=== PATIENT | female | born 1935 | race Caucasian/White ===

== ENCOUNTER 2019-05-12 21:24 | Inpatient (IN) | payer MEDICARE, MEDICAID ==
[~2019-05-12] VITALS: Ht 162.6 cm; Wt 78.9 kg
--- NOTE | 2019-05-12 21:33 | NUR ---
BIB [facility] FOR LOWER EXTREMITY WEAKNESS AND SWELLING FOR 2 DAYS. PATIENT C/O PAIN IN LOWER EXTREMETIES TO THE TOUCH. PER FAMILY PATIENT USUALLY WALKS BUT HAS DIFFICULTY WALKING FOR THE PAST FEW DAYS.
--- NOTE | 2019-05-12 21:56 | NUR ---
DR. RICCI AT BEDSIDE FOR MSE.
[2019-05-12 22:20] LABS: BASOPHILS % (AUTO) 0.3 % (0.0-2.0); EOSINOPHILS % (AUTO) 0.1 % (0.0-7.0); HEMATOCRIT 36.7 % (31.2-41.9); HEMOGLOBIN 12.2 g/dL (10.9-14.3); LYMPHOCYTES # (AUTO) 0.9 K/uL (20.0-40.0); LYMPHOCYTES % (AUTO) 8.6 % (20.5-51.5); MEAN CORPUSCULAR HEMOGLOBIN 30.3 uug (24.7-32.8); MEAN CORPUSCULAR HGB CONC 33 g/dL (32.3-35.6); MEAN CORPUSCULAR VOLUME 91.2 fL (75.5-95.3); MONOCYTES # (AUTO) 0.9 K/uL (2.0-10.0); MONOCYTES % (AUTO) 8.7 % (0.0-11.0); NEUTROPHILS # (AUTO) 8.2 K/uL (1.8-8.9); NEUTROPHILS % (AUTO) 82.3 % (38.5-71.5); PLATELET COUNT (AUTO) 334 K/uL (179-408); RED BLOOD CELL COUNT(AUTO) 4.03 MIL/uL (3.63-4.92); WHITE BLOOD COUNT (AUTO) 9.9 K/uL (3.8-11.8)
[2019-05-12 22:28] LABS: CARBON DIOXIDE 27 mmol/L (21-32); CHLORIDE 106 mmol/L (98-107); CREATININE 0.8 mg/dL (0.6-1.3); GLUCOSE 168 mg/dL (74-106); POTASSIUM 4.1 mmol/L (3.5-5.1); UREA NITROGEN, BLOOD 19 mg/dL (7-18)
[2019-05-12 22:34] LABS: ALANINE AMINOTRANSFERASE 23 U/L (14-59); ALKALINE PHOSPHATASE 88 U/L (50-136); ASPARTATE AMINOTRANSFERASE 54 U/L (15-37); BILIRUBIN,DIRECT 0.2 mg/dL (0.0-0.2); TOTAL PROTEIN, SERUM 7.4 g/dL (6.4-8.2)
[2019-05-12 23:40] LABS: *BILIRUBIN,URIN NEGATIVE (NEGATIVE); *BLOOD, URINE 1+ (NEGATIVE); *CLARITY,URINE CLEAR (CLEAR); *COLOR,URINE YELLOW (YELLOW); *KETONES,URINE 1+ (NEGATIVE); *UROBILINOGEN,URINE 0.2 E.U./dl (NORMAL); LEUKOCYTE ESTERASE ,URINE 1+ (NEGATIVE); NITRITE, URINE NEGATIVE (NEGATIVE); PH,URINE 6.5 (5.0-8.0); UGLUCOSE NEGATIVE (NEGATIVE)
[2019-05-12 23:48] LABS: BACTERIA,URINE NONE SEEN /HPF (NONE SEEN); SQUAMOUS EPITHELIAL CELL,UR FEW /HPF (NONE SEEN)
--- NOTE | 2019-05-13 00:33 | NUR ---
DR. GURROLA SPEAKING WITH DR RICCI AT THIS TIME.
--- NOTE | 2019-05-13 00:44 | NUR ---
Pt. admitted to [facility] , under care of Grace GURROLA N.P. Belongs List completed.
[2019-05-13] MEDS ORDERED: MAGNESIUM HYDROXIDE 30 ML LIQUID UDC PO PRN (01:00)
[2019-05-13] MEDS ORDERED: ENOXAPARIN SODIUM 30 MG/0.3 ML DISP.SYRIN SQ SCH ×2 (01:00→21:00)
[2019-05-13] MEDS ORDERED: Z GUARD REMEDY PASTE 57 GM TUBE TOP PRN (01:00)
[2019-05-13] MEDS ORDERED: ONDANSETRON 4 MG/2 ML VIAL IV PRN (01:00)
[2019-05-13] MEDS ORDERED: TEMAZEPAM 15 MG CAPSULE PO PRN (01:00)
[2019-05-13] MEDS ORDERED: ACETAMINOPHEN 325 MG TABLET PO PRN (01:00)
[2019-05-13] MEDS ORDERED: ASPIRIN 81 MG TAB.CHEW PO SCH (01:00)
[2019-05-13] MEDS: CEFTRIAXONE 1 G in IV DEXTROSE 5% 50 ML IV SCH (01:00)
[2019-05-13] MEDS ORDERED: MORPHINE SULFATE 2 MG/1 ML DISP.SYRIN IV PRN (01:00)
--- NOTE | 2019-05-13 01:00 | NUR ---
Admitting notes: Patient received into care, alert and oriented x3, with daughter at side. Patient came to hospital c/o generalized weakness x1 day with inability to ambulate. Patient has limited medical history of past CVA and bilateral cataract surgery. During ECG in ED, pt was found to have active A-fib. Per daughter, patient refuses to go to any doctor for check-up or ongoing care. All pertinent assessments were completed. Patient has BLE swelling of 1-2+ pitting edema. Patient has a 4-5 inch scrape on left hip/thigh that daughter states occurred when patient could not move left leg out of shower. Photograph taken and filed. Patient's vs are wnl and patient is stable. Will continue to monitor. Addendum: 05/13/19 at 0354 by ALE WONG RN Daughter is going to stay with patient. Extended stay form completed and filed.
[2019-05-13 01:29] VITALS: BP 167/80
--- NOTE | 2019-05-13 01:30 | NUR ---
IV antibiotic rocephin 50mL provided as ordered and tolerated well with no adverse side effects noted or observed.
[2019-05-13] MEDS ORDERED: CEFTRIAXONE 1 G VIAL ONE (02:46)
--- NOTE | 2019-05-13 05:00 | NUR ---
Patient has rested comfortably in bed with daughter at bedside since admission to unit. Patient has had no complaints of pain or discomfort since admission. VS are wnl and patient is stable. All safety and fall precaution measures are in place. Call light and personal items are within reach at all times. Will provide report to oncoming shift.
[2019-05-13 05:15] VITALS: BP 154/75
[2019-05-13 06:28] LABS: BASOPHILS % (AUTO) 0.4 % (0.0-2.0); EOSINOPHILS % (AUTO) 0.1 % (0.0-7.0); HEMATOCRIT 33.1 % (31.2-41.9); HEMOGLOBIN 11.2 g/dL (10.9-14.3); LYMPHOCYTES # (AUTO) 1.3 K/uL (20.0-40.0); LYMPHOCYTES % (AUTO) 15.3 % (20.5-51.5); MEAN CORPUSCULAR HEMOGLOBIN 30.7 uug (24.7-32.8); MEAN CORPUSCULAR HGB CONC 34 g/dL (32.3-35.6); MEAN CORPUSCULAR VOLUME 90.8 fL (75.5-95.3); MONOCYTES # (AUTO) 0.8 K/uL (2.0-10.0); MONOCYTES % (AUTO) 9.9 % (0.0-11.0); NEUTROPHILS # (AUTO) 6.3 K/uL (1.8-8.9); NEUTROPHILS % (AUTO) 74.3 % (38.5-71.5); PLATELET COUNT (AUTO) 292 K/uL (179-408); RED BLOOD CELL COUNT(AUTO) 3.64 MIL/uL (3.63-4.92); WHITE BLOOD COUNT (AUTO) 8.5 K/uL (3.8-11.8)
[2019-05-13 06:37] LABS: ALANINE AMINOTRANSFERASE 18 U/L (14-59); ALKALINE PHOSPHATASE 75 U/L (50-136); ASPARTATE AMINOTRANSFERASE 48 U/L (15-37); BILIRUBIN,TOTAL 0.8 mg/dL (0.2-1.0); CARBON DIOXIDE 27 mmol/L (21-32); CHLORIDE 108 mmol/L (98-107); CHOLESTEROL 221 mg/dL (<200); CREATININE 0.7 mg/dL (0.6-1.3); GLUCOSE 144 mg/dL (74-106); HDL CHOLESTEROL 95 mg/dL (40-60); MAGNESIUM 1.7 mg/dL (1.8-2.4); POTASSIUM 3.4 mmol/L (3.5-5.1); TOTAL PROTEIN, SERUM 6.3 g/dL (6.4-8.2); TRIGLYCERIDES 52 MG/DL (30-150); UREA NITROGEN, BLOOD 19 mg/dL (7-18)
[2019-05-13] MEDS: PANTOPRAZOLE SODIUM 40 MG TABLET.DR PO SCH (06:44)
--- NOTE | 2019-05-13 07:00 | NUR ---
RECEIVED PATIENT IN BED, AOX3, DAUGHTER AT BEDSIDE. PATIENT DENIES SOB OR PAIN AT THIS TIME. LT. AC IV INTACT AND FLUSHING WELL. SAFETY PRECAUTIONS IN PLACE. CALL LIGHT IN REACH. BED IN LOW POSITION AND LOCKED. ALL NEEDS MET AT THIS TIME. WILL CONTINUE TO MONITOR.
[2019-05-13 11:00] VITALS: BP_SYST 108; BP_SYST 158; BP_DIAS 93
[2019-05-13] MEDS ORDERED: POTASSIUM CHLORIDE 20 MEQ TAB.PRT.SR PO ONE (14:45)
[2019-05-13 15:06] VITALS: BP 167/78
[2019-05-13] MEDS: RIVAROXABAN 10 MG TABLET PO SCH (18:59)
[2019-05-13] MEDS: CARVEDILOL 6.25 MG TABLET PO SCH (19:00)
--- NOTE | 2019-05-13 19:00 | NUR ---
PATIENT RECEIVED ALERT AND AWAKE IN BED WITH DAUGHTER AT BEDSIDE. PATIENT IS IN NO APPARENT DISTRESS. PATIENT IS COMFORTABLE. SIDE RAILS UP X 2 BED IN LOWEST POSITION.
--- NOTE | 2019-05-13 19:17 | NUR ---
PATIENT IN BED AOX3. COMPLIANT WITH ALL CARE THROUGHOUT THE SHIFT. ALL NEEDS MEAT. SAFETY PRECAUTIONS IN PLACE.
[2019-05-13 20:44] VITALS: BP 151/77
[2019-05-13] MEDS ORDERED: ENOXAPARIN SODIUM 40 MG/0.4 ML DISP.SYRIN SQ SCH (21:00)
[2019-05-13] MEDS: ATORVASTATIN 20 MG TABLET PO SCH (21:01)
[2019-05-14 00:25] VITALS: BP 148/72
[2019-05-14] MEDS: CEFTRIAXONE 1 G in IV DEXTROSE 5% 50 ML IV SCH (00:43)
[2019-05-14 04:00] VITALS: BP 132/63
--- NOTE | 2019-05-14 06:06 | NUR ---
PATIENT IS IN BED AWAKE, PATIENT WAS CHANGED AND VOIDED ONCE. PATIENT IS COMFORTABLE IN NO APPARENT DISTRESS AT THIS TIME. CALL LIGHT IS WITHIN REACH. BED IS LOCKED WITH SIDE RAILS UP X 2.
[2019-05-14] MEDS: PANTOPRAZOLE SODIUM 40 MG TABLET.DR PO SCH (06:39)
[2019-05-14 06:49] LABS: BASOPHILS % (AUTO) 0.8 % (0.0-2.0); EOSINOPHILS # (AUTO) 0.1 K/uL (0.0-0.7); EOSINOPHILS % (AUTO) 1.7 % (0.0-7.0); HEMATOCRIT 32.9 % (31.2-41.9); LYMPHOCYTES # (AUTO) 1.7 K/uL (20.0-40.0); LYMPHOCYTES % (AUTO) 27.5 % (20.5-51.5); MEAN CORPUSCULAR HEMOGLOBIN 30.6 uug (24.7-32.8); MEAN CORPUSCULAR HGB CONC 34 g/dL (32.3-35.6); MEAN CORPUSCULAR VOLUME 91.4 fL (75.5-95.3); MONOCYTES # (AUTO) 0.7 K/uL (2.0-10.0); MONOCYTES % (AUTO) 11.6 % (0.0-11.0); NEUTROPHILS # (AUTO) 3.6 K/uL (1.8-8.9); NEUTROPHILS % (AUTO) 58.4 % (38.5-71.5); PLATELET COUNT (AUTO) 275 K/uL (179-408)
[2019-05-14 06:53] LABS: CARBON DIOXIDE 29 mmol/L (21-32); CHLORIDE 108 mmol/L (98-107); CREATININE 0.7 mg/dL (0.6-1.3); GLUCOSE 128 mg/dL (74-106); UREA NITROGEN, BLOOD 21 mg/dL (7-18)
[2019-05-14 07:11] LABS: WHITE BLOOD COUNT (AUTO) 6.2 K/uL (3.8-11.8)
--- NOTE | 2019-05-14 08:00 | NUR ---
AWAKE ALERT, PLEASANT AND COOPERATIVE, ABLE TO VERBALIZE NEEDS WELL WITH DAUGHTER AT BEDSIDE SUPPORTIVE WITH CARE. SR ON MONITOR
[2019-05-14] MEDS: CARVEDILOL 6.25 MG TABLET PO SCH ×2 (08:59→17:24)
[2019-05-14] MEDS ORDERED: ASPIRIN 81 MG TAB.CHEW PO SCH (09:00)
[2019-05-14] MEDS: HYDROCODONE/APAP 5-325MG TABLET PO PRN (09:01)
--- NOTE | 2019-05-14 09:06 | NUR ---
SEEN BY SPEECH AND PHYSICAL THERAPIST, SEE NOTES
--- NOTE | 2019-05-14 09:07 | NUR ---
MEDICATED WITH NORCO FOR LEFT RIB CAGE AND LEFT SIDE OF ABDOMEN PAIN. OBSERVED. AFIB ON MONITOR
[2019-05-14 11:07] VITALS: BP 134/77
--- NOTE | 2019-05-14 12:48 | NUR ---
SEEN BY DR MENDIETA AND CLINCHING MACHINE OPERATOR DISCUSSED PLAN OF CARE AND DISCHARGE PROCESS SEE NOTES. REMAINS AFIB ON MONITOR
--- NOTE | 2019-05-14 14:20 | NUR ---
WOUND CARE CONSULT: PT PRESENTS WITH INCONTINENCE ASSOCIATED SKIN DAMAGE TO LEFT POSTERIOR BUTTOCK/THIGH WITH SHEARING AND REDNESS TO LEFT GROIN FOLD, PRESENT ON ADMISSION. RECOMMENDATIONS MADE FOR SKIN CARE AND PROTECTION. DISCUSSED WITH NURSING STAFF. PT ABLE TO ASSIST WITH TURNING AND REPOSITIONING IN BED. PT IS INCONTINENT. WILL SEE PRN. RAMOS IN AGREEMENT WITH PLAN OF CARE. Addendum: 05/14/19 at 1433 by JABARI SEGAL RN Amended: Links added.
[2019-05-14 15:07] VITALS: BP 130/76
[2019-05-14] MEDS: RIVAROXABAN 10 MG TABLET PO SCH (17:22)
[2019-05-14 20:00] VITALS: BP 141/74
--- NOTE | 2019-05-14 20:00 | NUR ---
RECEIVED PATIENT AWAKE IN BED WITH DAUGHTER AT BEDSIDE. PATIENT IS A/O X4. FARSI SPEAKING BUT ABLE TO MAKE SIMPLE NEEDS KNOWN. VS WNL. ON RA SATING 97%. DENIES ANY SOB OR PAIN AT THIS TIME. H/L INTACT AND PATENT. BED ALARM ON. CALL LIGHT IN REACH. ALL NEEDS ATTENDED. WILL CONTINUE TO MONITOR.
[2019-05-14] MEDS: ATORVASTATIN 20 MG TABLET PO SCH (20:55)
[2019-05-15] MEDS: HYDROCODONE/APAP 5-325MG TABLET PO PRN (00:02)
[2019-05-15] MEDS: CEFTRIAXONE 1 G in IV DEXTROSE 5% 50 ML IV SCH (00:10)
--- NOTE | 2019-05-15 04:20 | NUR ---
PATIENT AWAKE, BP ELEVATED 165/78. PATIENT GIVEN CLONIDINE 0.1MG PO PRN FOR SBP >165. WILL CONTINUE TO MONITOR AND ASSESS.
[2019-05-15] MEDS: CLONIDINE HCL 0.1 MG TABLET PO PRN ×2 (04:24→13:20)
[2019-05-15 04:27] VITALS: BP 165/78
[2019-05-15 05:59] VITALS: BP 105/60
--- NOTE | 2019-05-15 05:59 | NUR ---
RECHECKED PATIENTS BLOOD PRESSURE 105/60.
[2019-05-15] MEDS: PANTOPRAZOLE SODIUM 40 MG TABLET.DR PO SCH (06:27)
[2019-05-15] MEDS: CARVEDILOL 6.25 MG TABLET PO SCH (08:35)
[2019-05-15 11:36] VITALS: BP 124/63
--- NOTE | 2019-05-15 11:50 | NUR ---
Pt. resting in bed alert oriented x3-4 Farsi speaking with daughter at bedside. No IV access as pt. refused and is a hardstick. Charge nurse and doctor aware. Pt. denies any SOB or difficulty breathing. Pt. denies any pain. Comfort measures provided. Safety measures in place. Call light within reach. Will continue to monitor.
[2019-05-15 13:20] VITALS: BP 186/97
--- NOTE | 2019-05-15 13:40 | NUR ---
Pt. discharged home via ambulance. Pt. in stable condition with daughter at bedside. Wrist band removed. Catapress given for elevated BP. BP now at 149/78 HR 83. Charge nurse aware.
== END 2019-05-15 13:45 | disposition home or self-care (01) | DRG 690 ==
LOC: ER 21:24 → TELE3 05-13 00:47 → MEDSURG3 05-14 14:22
PROVIDERS: ADMIT Nurse Practitioner Acute Care
DX: N39.0 Urinary tract infection, site not specified (principal); J98.11 Atelectasis; I48.2 Chronic atrial fibrillation; R53.1 Weakness; Z91.14 Patient's other noncompliance with medication regimen; E87.6 Hypokalemia; E83.42 Hypomagnesemia; E78.5 Hyperlipidemia, unspecified; Z86.73 Personal history of transient ischemic attack (TIA), and cerebral infarction without residual deficits; E86.0 Dehydration; Z98.42 Cataract extraction status, left eye; Z98.41 Cataract extraction status, right eye; I11.9 Hypertensive heart disease without heart failure; E11.9 Type 2 diabetes mellitus without complications; R74.0 Nonspecific elevation of levels of transaminase and lactic acid dehydrogenase [LDH]
CPT/HCPCS: 36415; 70030-TC; 70450; 71045; 71250; 83605; 83735; 84100; 84443; 85025; 85730; 87040; 87086; 93005; 93307; A4663; G0378; J0696; J1650; J7040; J7060

== ENCOUNTER 2021-08-10 18:39 | Inpatient (IN) | payer MEDICARE, OTHER ==
[~2021-08-10] VITALS: Ht 152.4 cm; Wt 93.0 kg
--- NOTE | 2021-08-10 18:45 | NUR ---
Per EMS pt is taking Xarelto, no other information about current home medications available at this time.
[2021-08-10] MEDS ORDERED: XARELTO (18:49)
[2021-08-10] MEDS ORDERED: ALBUTEROL SULFATE 2.5 MG/3 ML NEBU NEB ONE (19:00)
[2021-08-10] MEDS ORDERED: predniSONE 10 MG TABLET PO ONE (19:00)
[2021-08-10] MEDS ORDERED: IPRATROPIUM BROMIDE 0.5 MG/2.5 ML NEBU NEB ONE (19:00)
[2021-08-10] MEDS ORDERED: IPRATROPIUM BROMIDE 0.5 MG/2.5 ML NEBU ONE (19:05)
[2021-08-10] MEDS ORDERED: ALBUTEROL SULFATE 2.5 MG/3 ML NEBU ONE (19:06)
--- NOTE | 2021-08-10 19:08 | NUR ---
PT IS IN ROOM #2A. DR ETIENNE EVALUATED THE PT.
[2021-08-10 19:23] LABS: HEMATOCRIT 31.2 % (31.2-41.9); MEAN CORPUSCULAR HEMOGLOBIN 30.1 uug (24.7-32.8); MEAN CORPUSCULAR VOLUME 92.8 fL (75.5-95.3); PLATELET COUNT (AUTO) 309 K/uL (179-408)
[2021-08-10 19:35] LABS: ABG BASE EXCESS 4.4 mmol/L; ABG PCO2 57.1 mmHg (35.0-45.0); ABG PH 7.353 (7.350-7.450); ABG PO2 99.2 mmHg (75.0-100.0); ABG SITE RIGHT RADIAL; ABG TOTAL HEMOGLOBIN 10.8 G/dL (12.0-16.0); COHb 0.7 % (0.5-1.5); MetHb 0.2 % (0.0-1.5); O2Hb 96.3 % (94.0-97.0); VENT MODE Nasal Cannula
[2021-08-10 19:35] LABS: BILIRUBIN,DIRECT 0.3 mg/dL (0.0-0.2); BILIRUBIN,TOTAL 1.1 mg/dL (0.2-1.0); CREATININE 0.8 mg/dL (0.6-1.3); TOTAL PROTEIN, SERUM 6.5 g/dL (6.4-8.2)
[2021-08-10] MEDS ORDERED: predniSONE 50 MG TABLET ONE (19:37)
[2021-08-10] MEDS ORDERED: predniSONE 10 MG TABLET ONE (19:37)
[2021-08-10 19:39] LABS: POTASSIUM 3.9 mmol/L (3.5-5.1)
--- NOTE | 2021-08-10 19:45 | NUR ---
Dr. Knott speaking with Dr. Vasquez.
[2021-08-10] MEDS ORDERED: CARV6.25 PO (19:56)
[2021-08-10] MEDS ORDERED: FURO-152 PO (19:56)
[2021-08-10] MEDS ORDERED: RIVA20TA PO (19:56)
[2021-08-10] MEDS ORDERED: FUROSEMIDE 40 MG/4 ML VIAL IV ONE (20:00)
[2021-08-10] MEDS ORDERED: POTASSIUM CHLORIDE 20 MEQ TAB.PRT.SR PO ONE (20:00)
--- NOTE | 2021-08-10 20:00 | NUR ---
CALLED [facility] SPOKE WITH LINDA WHO REQUESTED FACESHEET AND CLINICALS TO BE FAXED TO
[2021-08-10] MEDS ORDERED: FUROSEMIDE 40 MG/4 ML VIAL ONE (20:11)
[2021-08-10] MEDS ORDERED: POTASSIUM CHLORIDE 20 MEQ TAB.PRT.SR ONE (20:12)
--- NOTE | 2021-08-10 21:03 | NUR ---
LINDA FROM [facility] CALLED BACK AND STATES THEY ARE UNABLE TO ACCEPT PATIENT AT THIS TIME DUE TO NO BEDS AVAILABLE IN THE HOSPITAL. DR JAIMIE VARGAS.
--- NOTE | 2021-08-10 21:06 | NUR ---
PAVAN NEUMANN INTO INTO EVAL PATIENT.
[2021-08-10] MEDS ORDERED: NITROGLYCERIN OINT 1 GM PACKET TP ONE ×2 (21:14→21:15)
[2021-08-10] MEDS ORDERED: ONDANSETRON 4 MG/2 ML VIAL IV PRN (21:30)
[2021-08-10] MEDS ORDERED: MAGNESIUM HYDROXIDE 30 ML LIQUID UDC PO PRN (21:30)
[2021-08-11] VITALS (7 sets, daily range): BP systolic 116–141; BP diastolic 63–78
--- NOTE | 2021-08-11 00:15 | NUR ---
At 2345H, admitted 85 y/o female on Tele with dx of acute CHF exacerbation and acute on chronic resp failure. Pt is Farsi Speaking, anxious, and with hx of dementia. IV on RAC G#20 patent and intact. Admission process done, belongings list filled up, body assessment done with picture taken placed in chart. A-fib on Tele. All needs attended. Call light placed within reach. Will continue to monitor.
[2021-08-11] MEDS ORDERED: LORAZEPAM 2 MG/1 ML VIAL IV PRN (01:15)
--- NOTE | 2021-08-11 02:10 | NUR ---
Pt noted to be anxious and trying to get up several times, also pulled out her IV. MD Elizabeth informed and ordered Ativan 1mg Q8H PRN. IV reinserted on R hand G#20, Ativan given and tolerated well. Pt currently asleep on bed. Will continue to monitor.
[2021-08-11] MEDS: CARVEDILOL 6.25 MG TABLET PO SCH ×3 (09:00→23:45)
[2021-08-11 09:01] LABS: CREATININE 0.8 mg/dL (0.6-1.3); MAGNESIUM 1.8 mg/dL (1.8-2.4); PHOSPHOROUS 4.7 mg/dL (2.5-4.9); POTASSIUM 4.7 mmol/L (3.5-5.1)
[2021-08-11 10:05] LABS: MEAN CORPUSCULAR HEMOGLOBIN 29.4 uug (24.7-32.8); MEAN CORPUSCULAR VOLUME 93.6 fL (75.5-95.3); PLATELET COUNT (AUTO) 274 K/uL (179-408)
[2021-08-11] MEDS ORDERED: FUROSEMIDE 20 MG/2 ML VIAL IV SCH (12:45)
[2021-08-11 13:02] LABS: ABG BASE EXCESS 6.1 mmol/L; ABG HCO3 35.7 mmol/L; ABG PCO2 85.6 mmHg (35.0-45.0); ABG PH 7.238 (7.350-7.450); ABG PO2 108.1 mmHg (75.0-100.0); ABG SITE LEFT RADIAL; ABG TOTAL HEMOGLOBIN 10.8 G/dL (12.0-16.0); COHb 0.1 % (0.5-1.5); MetHb 0.1 % (0.0-1.5); O2Hb 97.7 % (94.0-97.0)
[2021-08-11] MEDS: RIVAROXABAN 10 MG TABLET PO SCH (17:54)
--- NOTE | 2021-08-11 18:45 | NUR ---
Patient asleep in bed. Patient lethargic for most of shift. No signs of acute distress. IV access patent and intact. Patient on 8L O2 via simple mask, saturating 97-98%. Patient turned and repositioned q2. Bed alarm on for safety. Will endorse to incoming shift for continuity of care.
[2021-08-12 04:03] VITALS: BP 112/50
[2021-08-12 05:50] LABS: ABG BASE EXCESS 4.2 mmol/L; ABG HCO3 33.6 mmol/L; ABG PCO2 80.5 mmHg (35.0-45.0); ABG PH 7.238 (7.350-7.450); ABG PO2 78.1 mmHg (75.0-100.0); ABG SITE RIGHT RADIAL; ABG TOTAL HEMOGLOBIN 10.9 G/dL (12.0-16.0); COHb 0.2 % (0.5-1.5); MetHb 0.3 % (0.0-1.5); O2Hb 94.3 % (94.0-97.0)
--- NOTE | 2021-08-12 08:00 | NUR ---
Pt confused. PT o2 sat tapered down to 5 lit mask with sat of 94% with FORMING YARDAGE CONTROL OPERATOR. Mittens released and checked skin intact.
[2021-08-12 08:07] LABS: HEMATOCRIT 29.8 % (31.2-41.9); MEAN CORPUSCULAR HEMOGLOBIN 30.4 uug (24.7-32.8); MEAN CORPUSCULAR VOLUME 93.8 fL (75.5-95.3); PLATELET COUNT (AUTO) 301 K/uL (179-408)
[2021-08-12 08:30] LABS: CREATININE 1.1 mg/dL (0.6-1.3); POTASSIUM 4.9 mmol/L (3.5-5.1)
[2021-08-12] MEDS: CARVEDILOL 6.25 MG TABLET PO SCH ×2 (09:02→21:28)
[2021-08-12] MEDS: FUROSEMIDE 20 MG/2 ML VIAL IV SCH ×2 (12:06→21:28)
[2021-08-12 12:12] VITALS: BP 122/67
[2021-08-12] MEDS ORDERED: levoFLOXacin 500 MG/D5W 500 MG in PREMIXED 1 EACH IV SCH (14:15)
[2021-08-12 15:16] VITALS: BP 124/68
[2021-08-12] MEDS: levoFLOXacin 750MG/D5W 750 MG in PREMIXED 1 EACH IV SCH (16:17)
[2021-08-12 20:48] VITALS: BP 126/68
[2021-08-12] MEDS: DOCUSATE SODIUM 100 MG CAPSULE PO SCH (21:28)
[2021-08-12] MEDS ORDERED: RIVAROXABAN 10 MG TABLET ONE (22:53)
[2021-08-12] MEDS: RIVAROXABAN 10 MG TABLET PO SCH (23:14)
[2021-08-13] VITALS (11 sets, daily range): BP systolic 113–167; BP diastolic 56–92
--- NOTE | 2021-08-13 01:43 | NUR ---
Pt pulled out her midline pt was able to get out of her mittens. Pulled out his o2 pt desaturating to 82% on r/a at rest put pt back on simple mask @ 5 liters o2 sat came back up to 95%.
--- NOTE | 2021-08-13 01:48 | NUR ---
Attempted to restart IV unsuccessful will endorse to am shift.
[2021-08-13 06:09] LABS: ABG BASE EXCESS 8.7 mmol/L; ABG PCO2 66.4 mmHg (35.0-45.0); ABG PH 7.352 (7.350-7.450); ABG PO2 89.9 mmHg (75.0-100.0); ABG SITE RIGHT RADIAL; ABG TOTAL HEMOGLOBIN 9.9 G/dL (12.0-16.0); COHb 0.3 % (0.5-1.5); MetHb 0.3 % (0.0-1.5); O2Hb 96.2 % (94.0-97.0)
[2021-08-13 06:46] LABS: HEMATOCRIT 27.9 % (31.2-41.9); MEAN CORPUSCULAR VOLUME 93.5 fL (75.5-95.3); PLATELET COUNT (AUTO) 263 K/uL (179-408)
--- NOTE | 2021-08-13 06:57 | NUR ---
Pt is in no acute distress. PT slept through the night.
[2021-08-13 07:02] LABS: CREATININE 0.9 mg/dL (0.6-1.3); POTASSIUM 4.5 mmol/L (3.5-5.1)
--- NOTE | 2021-08-13 08:30 | NUR ---
received patient in bed with mask her sats are 94-95 percent changed her to nasal canula at 4l/m and her sat is at 94 percent she is confused gets aggressive at times removing her clothes has no iv access because per report she pulled her midline out will not allow the leads of her tele pulling on every thing despite being on wrist and mittens found mittens removed and thrown on the floor.latoya nielsen aware of patients actions with no new orders did not want to order any behavior meds for her at this time.
[2021-08-13] MEDS ORDERED: FUROSEMIDE 20 MG TABLET PO SCH (09:45)
--- NOTE | 2021-08-13 10:05 | NUR ---
Pt combative and in restraints. refused breast ultrasound
[2021-08-13] MEDS: DOCUSATE SODIUM 100 MG CAPSULE PO SCH ×2 (10:14→21:00)
[2021-08-13] MEDS: CARVEDILOL 6.25 MG TABLET PO SCH ×2 (10:14→21:00)
--- NOTE | 2021-08-13 10:45 | NUR ---
abg done per latoya and she reviewed results with no new orders at this time
[2021-08-13 11:24] LABS: ABG BASE EXCESS 8.4 mmol/L; ABG HCO3 35.6 mmol/L; ABG PH 7.363 (7.350-7.450); ABG PO2 105.6 mmHg (75.0-100.0); ABG SITE LEFT RADIAL; ABG TOTAL HEMOGLOBIN 10.9 G/dL (12.0-16.0); COHb 0.4 % (0.5-1.5); MetHb 0.1 % (0.0-1.5); O2Hb 97.6 % (94.0-97.0)
--- NOTE | 2021-08-13 12:53 | NUR ---
PAVAN NEUMANN HERE SEEN PATIENT AWARE THAT SHE IS NOW AGGRESSIVE AND DID PULL OUT HER MIDLINE LAST NITE AND SHE STATED TO REINSERT ANOTHER MID LINE MID LINE RN HERE AND AWARE.
--- NOTE | 2021-08-13 14:50 | NUR ---
respiratory therapist here patient has pulled out her o2 and resp is in the 40s and he called rapid response and placed patient on bipap latoya nielsen here and aware and wants patient to be ras status nursing customer services supervisor aware and stated that patient should be transfered to icu bed 2 as a ras
--- NOTE | 2021-08-13 15:05 | NUR ---
patient transfered to icu bed 2 and report given to the receiving nurse for continuining care patient has no personal belongings at the time of transfer o2 sat on the bipap is 97 percent .
--- NOTE | 2021-08-13 15:30 | NUR ---
pt received with FIO2 80%, orders to upgrade to ICU status.
--- NOTE | 2021-08-13 15:30 | NUR ---
received pt from telemetry unit, pt on bipap settings at 15/4, 20bpm, Fio2 80%. pt vitals 113HR, 100% O2 on bipap, 13BPM, 136/96BP. pt has bruising on the left lower leg going onto the heel. edematous lower extremities. Started 18g Iv on the right AC. pt appears to be obtunded, responsive to touch and light pain. Pt on bedside monitor controlled afib. pt on bilateral mittens and soft wrist restraints. will continue to monitor
--- NOTE | 2021-08-13 16:35 | NUR ---
CALLED PATIENTS DAUGHTER JOANA FOSTER NOTIFIED HER THAT HER MOTHER HAD A CHANGE IN CONDITION WAS SEEN BY PAVAN WITH ORDER TO TRANSFER TO [facility]. SHE WAS MOVED TO ICU BED 2 A [facility]SE STATUS SHE WAS VERY UPSET THAT THIS PATIENT HAS BEEN SEEN ONLY BY THE NURSE PRACTITIONER SINCE ADMISSION.SHE WAS REASSURED THAT THE DOCTOR AND THE FRONT OFFICE JAVA DEVELOPER ARE WORKING TOGETHER IN TAKING CARE OF HER MOM.
[2021-08-13 16:54] LABS: ABG BASE EXCESS 7.3 mmol/L; ABG HCO3 36.9 mmol/L; ABG PCO2 84.7 mmHg (35.0-45.0); ABG PH 7.257 (7.350-7.450); ABG SITE LEFT BRACHIAL; ABG TOTAL HEMOGLOBIN 11.3 G/dL (12.0-16.0); COHb 0.3 % (0.5-1.5); MetHb 0.5 % (0.0-1.5); O2Hb 95.5 % (94.0-97.0); VENT MODE BIPAP
--- NOTE | 2021-08-13 17:00 | NUR ---
pt visited by Dr. Hardwick, started on bipap 17/02 rate 20, fio2 60%. ABG ordered for tomorrow AM, to be done while pt is off bipap for 2 hours prior.
[2021-08-13] MEDS ORDERED: ALPRAZOLAM 0.25 MG TABLET PO PRN (17:15)
--- NOTE | 2021-08-13 17:40 | NUR ---
Patient seen by systems technician Dr. Hardwick report given see orders. Per his recommendation Dr. Qureshi called and notified of Geodon ordered for severe psychosis and agitation, and to informed him as well that pt. is currently on uncontrolled A-fib.
[2021-08-13] MEDS ORDERED: LEVALBUTEROL HCL NEB 0.63 MG/3 ML NEBU NEB PRN (17:45)
[2021-08-13] MEDS: RIVAROXABAN 10 MG TABLET PO SCH (18:00)
--- NOTE | 2021-08-13 19:07 | NUR ---
A call back from Dr. Qureshi and orders to give digoxin 500mcg IVP X 1 dose received. and endorse to incoming shift.
--- NOTE | 2021-08-13 19:10 | NUR ---
reveived patient on a bipap . 20 at 60 fio2 % , Hr afib at 101 , fernandes and iv intact , awake , restless , uncooperative , no fever
[2021-08-13] MEDS ORDERED: DIGOXIN 500 MCG/2 ML AMP IV ONE (19:15)
[2021-08-13] MEDS: ACETAzolamide SODIUM 500 MG VIAL IV SCH (19:21)
[2021-08-13 19:24] LABS: *BLOOD, URINE 3+ (NEGATIVE); *COLOR,URINE YELLOW (YELLOW); *KETONES,URINE NEGATIVE (NEGATIVE); LEUKOCYTE ESTERASE ,URINE NEGATIVE (NEGATIVE); NITRITE, URINE NEGATIVE (NEGATIVE); PH,URINE 5.5 (5.0-8.0); UGLUCOSE TRACE (NEGATIVE)
[2021-08-13 19:27] LABS: *BILIRUBIN,URIN 1+ (NEGATIVE)
[2021-08-13 19:32] LABS: *CLARITY,URINE SLIGHTLY CLOUDY (CLEAR); BACTERIA,URINE FEW /HPF (NONE SEEN); RBC,URINE 20-50 /HPF (0-3); SQUAMOUS EPITHELIAL CELL,UR MODERATE /HPF (NONE SEEN); YEAST,URINE FEW /HPF (NONE SEEN)
--- NOTE | 2021-08-13 20:38 | NUR ---
talked to the daughter , updates given , and gave the phone to the patient so she could hear daughter's voice , notified patient was placed on mittens for safety , pulling out the tubes and bipap
[2021-08-13] MEDS: ZIPRASIDONE MESYLATE 20 MG VIAL IM PRN (22:11)
[2021-08-14] VITALS (23 sets, daily range): BP systolic 86–147; BP diastolic 41–86
[2021-08-14 05:24] LABS: HEMATOCRIT 29.6 % (31.2-41.9); MEAN CORPUSCULAR HEMOGLOBIN 29.7 uug (24.7-32.8); MEAN CORPUSCULAR VOLUME 92.8 fL (75.5-95.3); PLATELET COUNT (AUTO) 263 K/uL (179-408)
[2021-08-14 05:42] LABS: CREATININE 1.2 mg/dL (0.6-1.3); MAGNESIUM 1.8 mg/dL (1.8-2.4); PHOSPHOROUS 2.3 mg/dL (2.5-4.9); POTASSIUM 4.3 mmol/L (3.5-5.1)
--- NOTE | 2021-08-14 06:15 | NUR ---
PATIENT WAS PLACED ON 100 % NRB , SATURATING 100 % , AROUSABLE TO TOUCH , NO DISTRESS , NO FEVER , IV AND VILLEGAS INTACT
--- NOTE | 2021-08-14 07:00 | NUR ---
Received pt. in bed on 100% 15L NR with saturation of 95%. Patient obtunded withdrawing from pain only but episodes of restlessness and agitation on/off. Cardiac-gant A-fib controlled rate of 70's-90's with sbp in the 128/64. Ml patent. will continue to monitor.
--- NOTE | 2021-08-14 07:20 | NUR ---
Patient seen by roof promenade tile setter Dr. Qureshi. Orders to continue with care plan received.
[2021-08-14] MEDS ORDERED: FUROSEMIDE 20 MG/2 ML VIAL IV ONE (08:00)
[2021-08-14] MEDS: ACETAzolamide SODIUM 500 MG VIAL IV SCH (08:11)
[2021-08-14] MEDS: DOCUSATE SODIUM 100 MG CAPSULE PO SCH ×2 (08:11→20:44)
[2021-08-14] MEDS: CARVEDILOL 6.25 MG TABLET PO SCH ×2 (08:12→20:44)
[2021-08-14] MEDS ORDERED: FUROSEMIDE 20 MG TABLET PO SCH (09:00)
--- NOTE | 2021-08-14 09:45 | NUR ---
Patient seen by asp developer Dr. Hardwick report given and after assessing and reviewing latest ABG results orders to continue with care plan received.
--- NOTE | 2021-08-14 12:00 | NUR ---
Pt's daughter Ms. Borrego at bedside and after been updated on her mom's current condition and care plan, She demanded to talk to attending. Addendum: 08/14/21 at 1228 by CAROLINA GREWAL RN Attending notified
--- NOTE | 2021-08-14 12:06 | NUR ---
Attending Elizabeth Echavarria in the unit to speak to pt's daughter Ms. Borrego and at this time Ms. Borrego refuse to talk to Elizabeth rothman to have a DrGutsabo at bedside. Doanto politely address her and finally she agreed to discuss her mom's care plan with him, ans she received and extended explanation of pt's condition.
[2021-08-14 12:52] LABS: ABG BASE EXCESS 10.8 mmol/L; ABG HCO3 36.7 mmol/L; ABG PCO2 57.8 mmHg (35.0-45.0); ABG PH 7.421 (7.350-7.450); ABG PO2 71.5 mmHg (75.0-100.0); ABG SITE LEFT RADIAL; ABG TOTAL HEMOGLOBIN 8.8 G/dL (12.0-16.0); COHb 0.2 % (0.5-1.5); MetHb 0.3 % (0.0-1.5); O2Hb 94.8 % (94.0-97.0); VENT MODE nc
--- NOTE | 2021-08-14 13:00 | NUR ---
Pt. taken down for CT.
--- NOTE | 2021-08-14 13:29 | NUR ---
Pt. back from CT. stable awake and screaming in her language. Pt's daughter at bedside.
[2021-08-14] MEDS: levoFLOXacin 750MG/D5W 750 MG in PREMIXED 1 EACH IV SCH (15:55)
[2021-08-14] MEDS ORDERED: NEUTRA PHOS PACKET PO ONE (16:00)
[2021-08-14] MEDS: ENSURE ENLIVE (VAN) 240 ML LIQUID PO SCH (16:18)
--- NOTE | 2021-08-14 16:49 | NUR ---
A call from dom benavidez's daughter requesting attending to give her a call as stated "I need him to call as soon as possible to inform me about the CT results" At this time she was informed that attending will be notified and it might take some time for him to respond and that results were not urgent to be address JOVAN as requested. Attending informed.
--- NOTE | 2021-08-14 18:36 | NUR ---
Left pt. in bed resting On Nasal canula 3L saturation of 95%. Patient obtunded withdrawing from pain only but episodes of restlessness and agitation on/off. Cardiac-gant A-fib controlled rate of 70's-90's with sbp in the 115/65. Ml patent. will continue to monitor. Restrains in place due periods of restlessness and agitation.
--- NOTE | 2021-08-14 19:10 | NUR ---
received patient awake , on 4 liters nc , no signs of distress , mid line and and fernandes intact
--- NOTE | 2021-08-14 20:30 | NUR ---
TALKED TO THE DAUGHTER , UPDATES GIVEN
[2021-08-14] MEDS: ENOXAPARIN SODIUM 40 MG/0.4 ML DISP.SYRIN SQ SCH (20:42)
[2021-08-15] VITALS (24 sets, daily range): BP systolic 91–138; BP diastolic 44–74
--- NOTE | 2021-08-15 | NUR ---
offered to be fed , patient refused
--- NOTE | 2021-08-15 02:00 | NUR ---
offered to be fed , patient refused food
[2021-08-15 05:12] LABS: HEMATOCRIT 30.4 % (31.2-41.9); MEAN CORPUSCULAR HEMOGLOBIN 29.7 uug (24.7-32.8); MEAN CORPUSCULAR VOLUME 92.8 fL (75.5-95.3); PLATELET COUNT (AUTO) 286 K/uL (179-408)
--- NOTE | 2021-08-15 05:14 | NUR ---
RESTLESS , TRYING TO GET OUT OF BED , UNABLE TO FOLLOW COMMAND , GEODON 10 MG IM WAS GIVEN
[2021-08-15 05:22] LABS: CREATININE 1.1 mg/dL (0.6-1.3); MAGNESIUM 1.8 mg/dL (1.8-2.4); POTASSIUM 3.9 mmol/L (3.5-5.1)
--- NOTE | 2021-08-15 07:00 | NUR ---
Received pt in bed resting awake and slightly agitated attempting to remove IV lines and somehow was able to remove her mittens. Pt educated at this time on restrains release criteria but unable to meet restrains release criteria at this moment. Pt. remains restless confused. On nasal 4 liters with saturation of 95%. Cardiac-gant pt. controlled A-fib. and sbp wnl. fernandes to gravity. Iv line patent, will continue to monitor.
[2021-08-15] MEDS: IV D5W 1000ML 1,000 ML IV PRN (08:39)
--- NOTE | 2021-08-15 08:40 | NUR ---
Travel Service Consultant Dr. Qureshi in the unit to see and examine pt. report given and orders to continue with care plan received.
[2021-08-15] MEDS: ACETAzolamide SODIUM 500 MG VIAL IV SCH (08:42)
[2021-08-15] MEDS: DOCUSATE SODIUM 100 MG CAPSULE PO SCH ×2 (08:42→20:26)
[2021-08-15] MEDS: ENSURE ENLIVE (VAN) 240 ML LIQUID PO SCH ×2 (08:43→16:53)
[2021-08-15] MEDS: CARVEDILOL 6.25 MG TABLET PO SCH ×2 (08:43→20:27)
--- NOTE | 2021-08-15 09:30 | NUR ---
Pulmonary services, Dr. Hardwick in the unit to see and examine pt. report given and orders to continue with care plan received.
[2021-08-15] MEDS ORDERED: NEUTRA PHOS PACKET PO ONE (15:15)
[2021-08-15] MEDS ORDERED: POTASSIUM PHOSPHATE MM 15 MMOL in IV NORMAL SALINE 250 ML IV ONE (16:00)
--- NOTE | 2021-08-15 18:18 | NUR ---
Left pt resting comfortably, Hemodynamically stable sbp of 111/71 hr A-fib in the 70's 80's. GI: no n/v/d/ no po intake either. Neuro-gant pt remains with periods of agitation when awake. fernandes to gravity. IV access patent with iv fluids infusing. will endorse for continuity of care.
--- NOTE | 2021-08-15 19:00 | NUR ---
Received patient asleep, arousable to name. No signs of pain nor distress noted. On NC @ 4LPM, O2 sat 94%. Checked IV site patent with ongoing D5W @50mls/hr and K phos @ 42.5mls/hr. With soft mittens restraints, CMS checked and intact. Givens catheter draining well to gravity. Will continue to monitor closely.
[2021-08-15] MEDS: ENOXAPARIN SODIUM 40 MG/0.4 ML DISP.SYRIN SQ SCH (20:27)
--- NOTE | 2021-08-15 21:00 | NUR ---
Spoke to Siddhartha (daughter), update given.
[2021-08-16] VITALS (24 sets, daily range): BP systolic 104–133; BP diastolic 48–70
--- NOTE | 2021-08-16 | NUR ---
Resting comfortably. No significant change of condition noted. Will continue to monitor closely.
[2021-08-16] MEDS: IV D5W 1000ML 1,000 ML IV PRN (04:44)
[2021-08-16 05:33] LABS: HEMATOCRIT 31.7 % (31.2-41.9); MEAN CORPUSCULAR HEMOGLOBIN 29.7 uug (24.7-32.8); MEAN CORPUSCULAR VOLUME 94.1 fL (75.5-95.3); PLATELET COUNT (AUTO) 270 K/uL (179-408)
[2021-08-16 05:42] LABS: CREATININE 0.9 mg/dL (0.6-1.3); MAGNESIUM 1.8 mg/dL (1.8-2.4); PHOSPHOROUS 2.7 mg/dL (2.5-4.9); POTASSIUM 3.8 mmol/L (3.5-5.1)
--- NOTE | 2021-08-16 06:23 | NUR ---
Left patient asleep, resting comfortably. On NC @4LPM. With ongoing IV fluid of D5W @50mls/hr. Soft mittens restraints, CMS good. Givens catheter intact with UO of 300ml. VSS. Endorsed to AM RN continuity of care.
--- NOTE | 2021-08-16 06:45 | NUR ---
Seen and examined by Dr Monroy, with no new orders.
--- NOTE | 2021-08-16 07:15 | NUR ---
Received report from multiple pressure riveter operator nurse, patient in bed lethargic. IV infusing, fernandes catheter draining appropriately. Controlled afib on the monitor, afebrile, hemodynamically stable.
[2021-08-16] MEDS: DOCUSATE SODIUM 100 MG CAPSULE PO SCH ×2 (08:40→21:05)
[2021-08-16] MEDS: ACETAzolamide SODIUM 500 MG VIAL IV SCH (08:40)
[2021-08-16] MEDS: ENSURE ENLIVE (VAN) 240 ML LIQUID PO SCH ×2 (08:44→17:00)
[2021-08-16] MEDS: CARVEDILOL 6.25 MG TABLET PO SCH ×2 (08:44→21:05)
[2021-08-16 08:52] LABS: ABG BASE EXCESS 5.6 mmol/L; ABG HCO3 34.2 mmol/L; ABG PCO2 74.9 mmHg (35.0-45.0); ABG PH 7.278 (7.350-7.450); ABG PO2 87.5 mmHg (75.0-100.0); ABG SITE RIGHT RADIAL; ABG TOTAL HEMOGLOBIN 10.8 G/dL (12.0-16.0); COHb 0.2 % (0.5-1.5); MetHb 0.1 % (0.0-1.5); O2Hb 95.7 % (94.0-97.0); VENT MODE Nasal Cannula
--- NOTE | 2021-08-16 09:00 | NUR ---
Bedside nursing swallow screening performed, patient unable to swallow, dribbling from mouth. Performed oral care and applied moisturizer to mouth for dryness. Received ABG results from RT, notifying Dr. Hardwick and patient to be placed on bipap for increased CO2 level.
[2021-08-16] MEDS ORDERED: DEXTROSE 50% 50 ML DISP.SYRIN IV PRN (13:15)
--- NOTE | 2021-08-16 14:00 | NUR ---
Patient awake and able to follow commands and swallow small amounts of water and apple sauce. patient ate 25% of meal.
[2021-08-16] MEDS ORDERED: levoFLOXacin 750 MG TABLET PO SCH (16:00)
--- NOTE | 2021-08-16 16:00 | NUR ---
Patient confused and continues to pull at clothing and oxygen. Patient reoriented and able to take some fluids and repositioned, air mattress placed and patient bathed.
[2021-08-16] MEDS: BLOOD SUGAR DIAGNOSTIC 1 EACH STRIP VI SCH ×2 (16:59→20:35)
[2021-08-16] MEDS: INSULIN REGULAR, HUMAN 300 UNIT/3 ML VIAL SQ PRN ×2 (17:00→20:39)
[2021-08-16] MEDS: RIVAROXABAN 15 MG TABLET PO SCH (17:07)
--- NOTE | 2021-08-16 18:35 | NUR ---
Patient continues to be drowsy but alert to touch and able to follow commands to drink water and oral care. Patient is hemodynamically stable and in controlled afib. Oxygen is on at 0.5L. No distress noted at this time. Urine output 400cc this shift. Bed in low position, side rails up x2.
--- NOTE | 2021-08-16 19:00 | NUR ---
Received patient awake, On NC @ 0.5LPM, O2 sat 94%. No signs of pain nor distress noted. Checked IV site dislodged. Reinserted IV line at LH 22G. Givens catheter draining well to gravity. Will continue to monitor closely.
--- NOTE | 2021-08-16 22:00 | NUR ---
Patient pulled out IV line. Dressing applied at IV site.
--- NOTE | 2021-08-16 22:15 | NUR ---
Bonny (daughter) consented for PICC line insertion. Consent done and placed on chart.
--- NOTE | 2021-08-16 22:21 | NUR ---
Notified Heading Machine Operator for PICC insertion.
--- NOTE | 2021-08-16 22:30 | NUR ---
Fernando STORY at bedside for PICC line insertion. Time out done.
--- NOTE | 2021-08-16 22:45 | NUR ---
PICC line done c/o Fernando STORY. No signs of acute distress noted. VSS.
--- NOTE | 2021-08-16 23:30 | NUR ---
CXR done c/o teradata architect.
--- NOTE | 2021-08-16 23:45 | NUR ---
Per Fernando STORY, ok to use PICC line. Noted and carried out.
[2021-08-17] VITALS (26 sets, daily range): BP systolic 51–169; BP diastolic 32–73
[2021-08-17] MEDS: BLOOD SUGAR DIAGNOSTIC 1 EACH STRIP VI SCH ×7 (00:13→23:46)
[2021-08-17] MEDS: INSULIN REGULAR, HUMAN 300 UNIT/3 ML VIAL SQ PRN ×5 (00:14→23:47)
--- NOTE | 2021-08-17 01:00 | NUR ---
Resting comfortably. No significant change of condition noted. Will continue to monitor closely.
[2021-08-17] MEDS: IV D5W 1000ML 1,000 ML IV PRN (04:19)
[2021-08-17 05:34] LABS: HEMATOCRIT 29.3 % (31.2-41.9); MEAN CORPUSCULAR HEMOGLOBIN 29.8 uug (24.7-32.8); MEAN CORPUSCULAR VOLUME 93.1 fL (75.5-95.3); PLATELET COUNT (AUTO) 275 K/uL (179-408)
[2021-08-17 05:46] LABS: CREATININE 0.8 mg/dL (0.6-1.3); MAGNESIUM 1.7 mg/dL (1.8-2.4); PHOSPHOROUS 2.2 mg/dL (2.5-4.9); POTASSIUM 3.4 mmol/L (3.5-5.1)
--- NOTE | 2021-08-17 06:45 | NUR ---
Seen and examined by Dr. Monroy, no new orders.
--- NOTE | 2021-08-17 07:18 | NUR ---
Left patient asleep, resting comfortably. VSS. Endorsed.
[2021-08-17] MEDS: MAGNESIUM SULFATE/D5W 100 ML IV SCH ×2 (07:41→08:47)
[2021-08-17] MEDS: POTASSIUM CHLORIDE 50 ML IV SCH ×2 (07:42→08:48)
[2021-08-17 08:02] LABS: ABG BASE EXCESS 8.4 mmol/L; ABG PCO2 67.7 mmHg (35.0-45.0); ABG PH 7.343 (7.350-7.450); ABG PO2 54.8 mmHg (75.0-100.0); ABG SITE RIGHT RADIAL; ABG TOTAL HEMOGLOBIN 10.7 G/dL (12.0-16.0); COHb 0.3 % (0.5-1.5); O2Hb 88.3 % (94.0-97.0); VENT MODE Nasal Cannula
[2021-08-17] MEDS: ACETAzolamide SODIUM 500 MG VIAL IV SCH (08:50)
[2021-08-17] MEDS: FUROSEMIDE 20 MG/2 ML VIAL IV SCH (08:50)
[2021-08-17] MEDS: CARVEDILOL 6.25 MG TABLET PO SCH ×2 (08:51→20:37)
[2021-08-17] MEDS: DOCUSATE SODIUM 100 MG CAPSULE PO SCH (08:51)
[2021-08-17] MEDS: ENSURE ENLIVE (VAN) 240 ML LIQUID PO SCH ×2 (09:06→17:00)
[2021-08-17] MEDS: DOCUSATE SODIUM 100 MG/10 ML LIQUID UDC PO SCH ×2 (09:06→20:38)
--- NOTE | 2021-08-17 11:00 | NUR ---
Patient placed on bipap per physician request. Patient lethargic.
--- NOTE | 2021-08-17 12:00 | NUR ---
Patient removed from bipap as she was pulling the mask and everything else off of her.
[2021-08-17] MEDS: ALBUTEROL SULFATE 1.25 MG/3 ML NEBU NEB PRN (12:05)
[2021-08-17] MEDS ORDERED: NEUTRA PHOS PACKET PO ONE (16:00)
--- NOTE | 2021-08-17 17:00 | NUR ---
Patient tolerated dinner and alert enough to say when it was enough.
--- NOTE | 2021-08-17 18:00 | NUR ---
Patient starting to pull on lines, catheter and leads despite wrist restraints for safety. Patient given Tylenol to relieve any discomfort.
[2021-08-17] MEDS: RIVAROXABAN 15 MG TABLET PO SCH (18:03)
[2021-08-17] MEDS: ACETAMINOPHEN 325 MG TABLET PO PRN (18:04)
--- NOTE | 2021-08-17 19:45 | NUR ---
Patient resting comfortably in bed.
[2021-08-17] MEDS ORDERED: NOREPINEPHRINE BITARTRATE 8 MG in IV NORMAL SALINE 242 ML IV PRN (23:30)
[2021-08-17] MEDS ORDERED: IV NORMAL SALINE 250 ML IV ONE (23:30)
--- NOTE | 2021-08-17 23:42 | NUR ---
23:25 - PATIENT WITH DECREASED BP, INCREASED WORK OF BREATHING , PT PLACED ON BI/PAP WITH 17/02 , R20, 50% , DECREASED TO 40% , SAT 91%, WILL MONITOR CLOSELY TO TITRATE FIO2, ALL NURSES AWARE .Ama SHIPMAN RCP Addendum: 08/17/21 at 2344 by BRANDIE SHIPMAN RT Amended: Links added.
[2021-08-18] VITALS (20 sets, daily range): BP systolic 106–141; BP diastolic 45–83
[2021-08-18] MEDS: BLOOD SUGAR DIAGNOSTIC 1 EACH STRIP VI SCH ×6 (03:48→23:29)
[2021-08-18 05:57] LABS: HEMATOCRIT 28.3 % (31.2-41.9); MEAN CORPUSCULAR HEMOGLOBIN 29.5 uug (24.7-32.8); MEAN CORPUSCULAR VOLUME 92.6 fL (75.5-95.3); PLATELET COUNT (AUTO) 243 K/uL (179-408)
[2021-08-18 06:13] LABS: CREATININE 0.9 mg/dL (0.6-1.3); PHOSPHOROUS 2.6 mg/dL (2.5-4.9); POTASSIUM 3.4 mmol/L (3.5-5.1)
--- NOTE | 2021-08-18 07:15 | NUR ---
Received pt. in bed sleeping on/off. when awake oriented to name only, at times disoriented. Hemodynamically stable sbp wnl. On NC 2L no tachypnea, SOB noted. IV access patent. Givens to gravity, will continue to monitor.
[2021-08-18] MEDS: ENSURE ENLIVE (VAN) 240 ML LIQUID PO SCH ×2 (08:40→17:26)
[2021-08-18] MEDS: DOCUSATE SODIUM 100 MG/10 ML LIQUID UDC PO SCH ×2 (08:40→21:08)
[2021-08-18] MEDS: FUROSEMIDE 20 MG/2 ML VIAL IV SCH (08:40)
[2021-08-18] MEDS: ACETAzolamide SODIUM 500 MG VIAL IV SCH (08:40)
[2021-08-18] MEDS: CARVEDILOL 6.25 MG TABLET PO SCH ×2 (08:43→21:08)
--- NOTE | 2021-08-18 09:00 | NUR ---
Pulmonary services, Dr. Hardwick in the unit to see and examine pt. report given see order hx.
[2021-08-18] MEDS ORDERED: POTASSIUM CHLORIDE 20 MEQ POWDER PACKET PO ONE (09:15)
--- NOTE | 2021-08-18 13:14 | NUR ---
Attending N.P. in the unit to follow up on pt. report given and at this time pt's daughter at bedside and she was updated of pt's care plan by
[2021-08-18 15:05] LABS: *BILIRUBIN,URIN NEGATIVE (NEGATIVE); *BLOOD, URINE 3+ (NEGATIVE); *CLARITY,URINE CLOUDY (CLEAR); *COLOR,URINE RED (YELLOW); *KETONES,URINE NEGATIVE (NEGATIVE); LEUKOCYTE ESTERASE ,URINE NEGATIVE (NEGATIVE); NITRITE, URINE NEGATIVE (NEGATIVE); UGLUCOSE NEGATIVE (NEGATIVE)
[2021-08-18 15:51] LABS: RBC,URINE TNTC /HPF (0-3); WBC,URINE 0-3 /HPF (0-3)
--- NOTE | 2021-08-18 16:30 | NUR ---
A call from attending Elizabeth renae and order to stop 1800 Xarelto dose only.
[2021-08-18] MEDS: levoFLOXacin 750MG/D5W 750 MG in PREMIXED 1 EACH IV SCH (17:22)
--- NOTE | 2021-08-18 18:13 | NUR ---
Left pt. in bed resting AAOx1. Hemodynamically stable NSR and sbp of 110/58., On NC 1L with saturation of 97-100% no SOB noted. Remain on Restrains due to periods of confusion and attempts to remove IV lines and treatment. During shift tolerated diet well no n/v/d/ eating only minimal amounts. fernandes to gravity. Iv access patent. will endorse for continuity of care.
[2021-08-18] MEDS: INSULIN REGULAR, HUMAN 300 UNIT/3 ML VIAL SQ PRN ×2 (21:01→23:30)
[2021-08-18] MEDS: ACETAMINOPHEN 325 MG TABLET PO PRN (22:14)
[2021-08-19] VITALS (24 sets, daily range): BP systolic 107–157; BP diastolic 44–86
--- NOTE | 2021-08-19 02:22 | NUR ---
Brief episodal bigeminal PVC's; patient unaware.
[2021-08-19] MEDS: BLOOD SUGAR DIAGNOSTIC 1 EACH STRIP VI SCH ×5 (04:32→20:25)
[2021-08-19 05:21] LABS: HEMATOCRIT 28.1 % (31.2-41.9); MEAN CORPUSCULAR HEMOGLOBIN 29.5 uug (24.7-32.8); MEAN CORPUSCULAR VOLUME 92.8 fL (75.5-95.3); PLATELET COUNT (AUTO) 258 K/uL (179-408)
[2021-08-19 05:37] LABS: CREATININE 0.9 mg/dL (0.6-1.3); POTASSIUM 3.6 mmol/L (3.5-5.1)
--- NOTE | 2021-08-19 07:15 | NUR ---
Received pt. sleeping easily arousable restless agitated, and remains on mittens and soft restrains due to attempt to remove IV access. On 1L NC with saturation above 95%. tachypnea in the high 30's noted. Patient continuously moaning but denying having any pain. Hemodynamically stable with heart rate of a-fib controlled/NSR in the 70's. fernandes to gravity. Will continue to monitor.
--- NOTE | 2021-08-19 08:00 | NUR ---
Patient seen by genetics nurse Dr. Hardwick report given and orders to continue with care plan received.
[2021-08-19] MEDS: ENSURE ENLIVE (VAN) 240 ML LIQUID PO SCH ×2 (08:07→17:25)
[2021-08-19] MEDS: DOCUSATE SODIUM 100 MG/10 ML LIQUID UDC PO SCH ×2 (08:08→20:15)
[2021-08-19] MEDS: CARVEDILOL 6.25 MG TABLET PO SCH ×2 (08:08→20:16)
[2021-08-19 08:09] LABS: ABG BASE EXCESS 9.4 mmol/L; ABG HCO3 36.8 mmol/L; ABG PCO2 67.8 mmHg (35.0-45.0); ABG PH 7.352 (7.350-7.450); ABG PO2 60.9 mmHg (75.0-100.0); ABG SITE RIGHT FEMORAL; ABG TOTAL HEMOGLOBIN 10.1 G/dL (12.0-16.0); COHb 0.2 % (0.5-1.5); MetHb 0.3 % (0.0-1.5); O2Hb 90.8 % (94.0-97.0); VENT MODE Nasal Cannula
[2021-08-19 08:16] LABS: ABG BASE EXCESS 9.8 mmol/L; ABG HCO3 36.4 mmol/L; ABG PH 7.394 (7.350-7.450); ABG PO2 59.9 mmHg (75.0-100.0); ABG SITE RIGHT RADIAL; ABG TOTAL HEMOGLOBIN 10.4 G/dL (12.0-16.0); COHb 0.4 % (0.5-1.5); MetHb 0.2 % (0.0-1.5); VENT MODE Nasal Cannula
--- NOTE | 2021-08-19 09:55 | NUR ---
Patient with an episode of desaturation down to sustained 78-80's and oxygen need increased to 1L.
[2021-08-19] MEDS ORDERED: GLUCERNA SHAKE VANILLA 237 ML CAN PO PRN (11:30)
[2021-08-19] MEDS: ALBUTEROL SULFATE 1.25 MG/3 ML NEBU NEB PRN (16:00)
[2021-08-19] MEDS: INSULIN REGULAR, HUMAN 300 UNIT/3 ML VIAL SQ PRN (17:06)
--- NOTE | 2021-08-19 17:47 | NUR ---
Pt. noted to have difficulty swallowing and noted to be coughing increasingly with dinner. Attending called to be notified.
--- NOTE | 2021-08-19 18:01 | NUR ---
Patient remains restless and agitated at this time does not meet restrains release criteria. Will continue to monitor.
--- NOTE | 2021-08-19 19:00 | NUR ---
Received patient awake, confused; no signs of pain nor distress noted. On NC @ 1LPM, O2 sat 96%; hemodynamically stable HR=81, XU=315/67; IV site SL patent and flushed. No erythema, bleeding or infiltration noted. On soft bilateral wrist restraints, CMS intact. Givens catheter draining well to gravity. Comfort care provided. Call light within reach. Will continue to monitor closely.
--- NOTE | 2021-08-19 19:11 | NUR ---
Left pt. sleeping on 1Liter NC. saturaion of 97%. report given to Juhi Rainey and informed of Dr's request to keep pt. on BIPAP for the night as ordered. Hemodynamically stable hr of 87 and sbp in the 140's. Neuro-gant rmeains confused and agitated when awake, pt. left on mittens bilateral with circulation present. fernandes to gravity. Iv line patent.
--- NOTE | 2021-08-19 20:00 | NUR ---
Informed RT Jassi that patient need to be placed on Bipap as ordered.
[2021-08-20] VITALS (24 sets, daily range): BP systolic 96–161; BP diastolic 53–101
--- NOTE | 2021-08-20 | NUR ---
AM care done. Linen changed. Comfort care provided.
[2021-08-20] MEDS: BLOOD SUGAR DIAGNOSTIC 1 EACH STRIP VI SCH ×6 (00:15→20:56)
--- NOTE | 2021-08-20 01:00 | NUR ---
Patient was agitated and confused, removing her gown, cardiac leads, and throwing linens. Reoriented and reassured patient.
[2021-08-20] MEDS: ZIPRASIDONE MESYLATE 20 MG VIAL IM PRN (01:24)
--- NOTE | 2021-08-20 02:00 | NUR ---
Resting comfortably. No significant change of condition noted. Will continue to monitor closely.
[2021-08-20] MEDS: INSULIN REGULAR, HUMAN 300 UNIT/3 ML VIAL SQ PRN ×2 (03:48→20:58)
[2021-08-20 05:07] LABS: HEMATOCRIT 28.4 % (31.2-41.9); MEAN CORPUSCULAR HEMOGLOBIN 29.8 uug (24.7-32.8); MEAN CORPUSCULAR VOLUME 92.8 fL (75.5-95.3); PLATELET COUNT (AUTO) 268 K/uL (179-408)
[2021-08-20 05:11] LABS: CREATININE 0.9 mg/dL (0.6-1.3); MAGNESIUM 1.8 mg/dL (1.8-2.4); POTASSIUM 3.8 mmol/L (3.5-5.1)
--- NOTE | 2021-08-20 07:00 | NUR ---
Left patient awake, confused. No signs of pain nor distress noted. On NC @1LPM, O2 sat 98%. KM PICC SL patent and intact. On soft wrist bilateral restraints, CMS intact. Givens catheter draining well to gravity. VSS. Endorsed continuity of care.
--- NOTE | 2021-08-20 08:00 | NUR ---
oxygen need down to 1L.
--- NOTE | 2021-08-20 08:11 | NUR ---
Received pt. Sleeping when awake restless and agitated, mittens in place circulation present slight bruising noted on right wrist area restrains released at this time. Patient on NC 2L with saturation of 88-92% no respiratory distress noted. Hemodynamically stable rate in the 80's with SBP of 118/85. IV line patent. fernandes to gravity.
[2021-08-20] MEDS: DOCUSATE SODIUM 100 MG/10 ML LIQUID UDC PO SCH ×2 (08:28→21:00)
[2021-08-20] MEDS: CARVEDILOL 6.25 MG TABLET PO SCH ×2 (08:29→21:00)
[2021-08-20] MEDS: ENSURE ENLIVE (VAN) 240 ML LIQUID PO SCH ×2 (08:30→17:00)
--- NOTE | 2021-08-20 11:07 | NUR ---
Oxygen down to 0.5L, saturation of 93%.
--- NOTE | 2021-08-20 13:59 | NUR ---
With pt's daughter at bedside Ms. Ruiz as requested pt. provided with ensure as requested by her despite recommendations to keep her npo until fully awake and as recommended by speech therapist Dora after seen pt. for 2nd time today. Pt's daughter stating "I'm taking full responsibility of what might happen" Sara educated on possible silent aspiration pt. noted to be coughing and wheezing breathing treatment given as ordered prn.
[2021-08-20] MEDS: ALBUTEROL SULFATE 1.25 MG/3 ML NEBU NEB PRN (14:11)
--- NOTE | 2021-08-20 16:23 | NUR ---
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 Addendum: 08/20/21 at 1625 by CAROLINA GREWAL RN the above note belongs to some other pt.
[2021-08-20] MEDS: levoFLOXacin 750MG/D5W 750 MG in PREMIXED 1 EACH IV SCH (17:34)
[2021-08-20] MEDS: RIVAROXABAN 15 MG TABLET PO SCH (17:48)
--- NOTE | 2021-08-20 17:49 | NUR ---
XARELTO DOSE HELD ORDERED BY ATTENDING DUE TO BLOOD RESIDUES IN INDWELLING CATHETER.
[2021-08-20] MEDS: ACETAMINOPHEN 325 MG TABLET PO PRN (18:45)
--- NOTE | 2021-08-20 18:50 | NUR ---
Left pt. in bed resting comfortable. On NC .5L with saturation between 88-92%. pt. with some episodes of desaturation down to 82% while restless and agitated. Hemodynamically stable on NSR. and sbp within desired limits. Pt. NPO due failed reevaluation by speech michael who recommended NPO status until further order due to high risk of aspiration. Patient left on acute medical restrains due multiple attempts to remove ekg electrodes and and IV access as well as oxygen. Givens to gravity, will endorse for continuity of care.
--- NOTE | 2021-08-20 19:00 | NUR ---
Received awake, confused, denies pain at this time. No signs of distress noted. KM PICC line patent and flushed. On NC @1LPM, O2 sat 94%. Givens catheter draining well to gravity. VSS. Will continue to monitor closely.
--- NOTE | 2021-08-20 19:08 | NUR ---
Report given to Juhi Clinton she was instructed per MD order to asked RT department to have pt. on BIPAP as ordered.
--- NOTE | 2021-08-20 19:44 | NUR ---
Informed RT Tati that patient be placed on Bipap machine tonight.
--- NOTE | 2021-08-20 20:10 | NUR ---
Patient removed Bipap mask despite with her mittens/restraints on. Reoriented, reassured, and explained importance of bipap machine. Placed mask back on to patient. RT Duffy made aware.
--- NOTE | 2021-08-20 20:20 | NUR ---
Bonny (daughter) called, report given and informed that her mother is on Bipap machine and was trying to remove the bipap mask and tubings.
--- NOTE | 2021-08-20 20:43 | NUR ---
Patient yelling and removing bipap mask again. Bipap removed for now. Notified RT Tati and will place Bipap later on her next rounds. Placed patient back on NC @ 1LPM.
--- NOTE | 2021-08-20 21:30 | NUR ---
Patient was placed on Bipap c/o RT Tati.
--- NOTE | 2021-08-20 21:42 | NUR ---
Patient removed bipap mask again. Placed bipap mask on. RT Tati made aware. Reoriented, reassured, and explained importance of it.
--- NOTE | 2021-08-20 22:00 | NUR ---
Patient removing Bipap mask again. Reorientation and reassurance given to patient. PM care done. Linen changed.
[2021-08-21] VITALS (24 sets, daily range): BP systolic 96–147; BP diastolic 33–81
[2021-08-21] MEDS: BLOOD SUGAR DIAGNOSTIC 1 EACH STRIP VI SCH ×6 (00:23→20:10)
[2021-08-21] MEDS: IV D5 1/2 NS 1000 ML 1,000 ML IV PRN ×2 (00:30→13:49)
[2021-08-21] MEDS: INSULIN REGULAR, HUMAN 300 UNIT/3 ML VIAL SQ PRN ×5 (00:38→20:11)
--- NOTE | 2021-08-21 02:00 | NUR ---
Resting comfortably, on bipap. No significant change of condition noted. Will continue to monitor closely.
--- NOTE | 2021-08-21 05:00 | NUR ---
Bipap removed and placed back on NC @1LPM c/o RT Tati. Patient resting comfortably.
[2021-08-21 05:05] LABS: HEMATOCRIT 27.5 % (31.2-41.9); MEAN CORPUSCULAR HEMOGLOBIN 29.8 uug (24.7-32.8); MEAN CORPUSCULAR VOLUME 92.3 fL (75.5-95.3); PLATELET COUNT (AUTO) 279 K/uL (179-408)
[2021-08-21 05:15] LABS: CREATININE 0.8 mg/dL (0.6-1.3); MAGNESIUM 1.9 mg/dL (1.8-2.4); PHOSPHOROUS 1.8 mg/dL (2.5-4.9); POTASSIUM 3.7 mmol/L (3.5-5.1)
--- NOTE | 2021-08-21 05:21 | NUR ---
Patient on Bipap all night, removed Bipap at 0510. Pt awake and kept removing mask. Placed on N/C 1 lpm. MISA lopez.
--- NOTE | 2021-08-21 05:45 | NUR ---
CXR at bedside.
--- NOTE | 2021-08-21 06:46 | NUR ---
Patient is asleep, resting comfortably. No signs of acute distress noted. On NC @ 0.5LPM, O2 sat 95%; KM PICC line with ongoing D5 1/2NS @75mls/hr. Givens catheter with UO of 250ml. VSS T=97.8, HR=70, LX=504/70, O2 sat 95%. Endorsed continuity of care. Addendum: 08/21/21 at 0658 by Lore Stock RN On soft wrist bilateral restraints, CMS intact.
[2021-08-21 08:11] LABS: ABG BASE EXCESS 10.4 mmol/L; ABG HCO3 37.8 mmol/L; ABG PCO2 64.1 mmHg (35.0-45.0); ABG PH 7.389 (7.350-7.450); ABG PO2 66.2 mmHg (75.0-100.0); ABG SITE RIGHT RADIAL; COHb 0.7 % (0.5-1.5); MetHb 0.1 % (0.0-1.5); O2Hb 92.3 % (94.0-97.0); VENT MODE NC
[2021-08-21] MEDS: CARVEDILOL 6.25 MG TABLET PO SCH ×2 (08:36→20:05)
[2021-08-21] MEDS: DOCUSATE SODIUM 100 MG/10 ML LIQUID UDC PO SCH ×2 (08:36→20:05)
[2021-08-21] MEDS: ENSURE ENLIVE (VAN) 240 ML LIQUID PO SCH (08:38)
[2021-08-21] MEDS: ACETAMINOPHEN 325 MG TABLET PO PRN ×3 (08:40→20:04)
[2021-08-21] MEDS ORDERED: POTASSIUM CHLORIDE 20 MEQ POWDER PACKET GT ONE (10:15)
[2021-08-21] MEDS ORDERED: POTASSIUM PHOSPHATE MM 15 MMOL in IV NORMAL SALINE 250 ML IV ONE (11:00)
--- NOTE | 2021-08-21 11:25 | NUR ---
0730am: SBAR received from MISA Torrez, patient is awake and confuse. Patient parrots whatever a speaker says to her, on nasal cannula@0.5 liter per minute, on mittens with soft restraints x2, skim warm & dry 0807am:[email or web address] 0935am: Physical therapist [email or web address] 1000am:Patient was able to talk to family via phone. 1011am: [email or web address] 1014am: Nasal cannula@0.25liter per minute per Dr Hardwick 1016am: [email or web address] 1124am: Patient has intermittent shortness of breath, position changes done,SpO2=92%-97% with 0.25liter per minute by nasal cannula. Georgian music and movies are on via IPad
[2021-08-21] MEDS: ALBUTEROL SULFATE 1.25 MG/3 ML NEBU NEB PRN (12:25)
--- NOTE | 2021-08-21 13:43 | NUR ---
1230pm: Patient is more awake, still confuse and occasionally interactive. Patient was seen moving both her hands in sync and rhythmic with the Setswana music. 1328pm: Patient is trying to remove her therapeutic lines. Reorientation done. Pramod on PICC line for reinforcement. 1437pm: Patient's [email or web address].
[2021-08-21] MEDS: GLUCERNA SHAKE 237 ML CAN PO SCH (17:08)
[2021-08-21] MEDS: RIVAROXABAN 15 MG TABLET PO SCH (17:35)
--- NOTE | 2021-08-21 19:30 | NUR ---
spoon fed for dinner ate 25% .due medication crushed and given with applesauce.hob up .
--- NOTE | 2021-08-21 20:03 | NUR ---
fingerstick done and follow insulin sliding scale .
--- NOTE | 2021-08-21 20:30 | NUR ---
Pt placed on BIPAP at this time on settings of BIPAP 22/5, resp. rate 20, FIO2-25%. No resp. distress noted at this time. Pt to be monitored throughout the shift.
--- NOTE | 2021-08-21 20:33 | NUR ---
respiratory therapist at b/s and placed patient on bipap .
--- NOTE | 2021-08-21 20:47 | NUR ---
applied soft wrist restraints patient so confused and keep removing the bipap removing heart monitor .follow restraints protocol . reoriented patient .
[2021-08-22] VITALS (20 sets, daily range): BP systolic 102–144; BP diastolic 42–83
[2021-08-22] MEDS: BLOOD SUGAR DIAGNOSTIC 1 EACH STRIP VI SCH ×2 (00:55→05:00)
[2021-08-22] MEDS: INSULIN REGULAR, HUMAN 300 UNIT/3 ML VIAL SQ PRN ×3 (00:56→08:21)
[2021-08-22] MEDS: IV D5 1/2 NS 1000 ML 1,000 ML IV PRN (03:16)
--- NOTE | 2021-08-22 04:30 | NUR ---
MARKETING SUPPORT COORDINATOR AT BEDSIDE FOR AM LABS .
[2021-08-22 05:19] LABS: ABG BASE EXCESS 10.9 mmol/L; ABG HCO3 35.7 mmol/L; ABG PO2 62.9 mmHg (75.0-100.0); ABG SITE RIGHT BRACHIAL; ABG TOTAL HEMOGLOBIN 9.4 G/dL (12.0-16.0); COHb 0.4 % (0.5-1.5); MetHb 0.2 % (0.0-1.5); O2Hb 92.5 % (94.0-97.0); VENT MODE BIPAP 22/5
[2021-08-22 05:20] LABS: HEMATOCRIT 26.7 % (31.2-41.9); MEAN CORPUSCULAR HEMOGLOBIN 29.7 uug (24.7-32.8); PLATELET COUNT (AUTO) 250 K/uL (179-408)
--- NOTE | 2021-08-22 05:30 | NUR ---
AM CARE DONE .BATH PATIENT AND CHANGED SOILED LINENS AND GOWN.F/C DONE . TURNED AND REPOSITIONS, SCDS USED TO BILATERAL LOWER EXTREMITIES .HEELS OFF BED WITH PILLOWS .
[2021-08-22 05:40] LABS: CREATININE 0.9 mg/dL (0.6-1.3); MAGNESIUM 1.7 mg/dL (1.8-2.4); PHOSPHOROUS 2.6 mg/dL (2.5-4.9); POTASSIUM 4.3 mmol/L (3.5-5.1)
--- NOTE | 2021-08-22 08:00 | NUR ---
received change of shift report form manufacturing machine operator RN. Pt off bipap, on 0.5L O2 NC. Pt confused, redirectable. pt on airloss mattress, pt voiding via fernandes, molina/pink tinged urine. pt has L UA PICC running D51/2NS at 75.
[2021-08-22] MEDS: GLUCERNA SHAKE 237 ML CAN PO SCH ×3 (08:07→16:25)
[2021-08-22] MEDS: DOCUSATE SODIUM 100 MG/10 ML LIQUID UDC PO SCH ×2 (08:08→20:41)
[2021-08-22] MEDS: CARVEDILOL 6.25 MG TABLET PO SCH ×2 (08:09→20:39)
[2021-08-22] MEDS: ACETAMINOPHEN 325 MG TABLET PO PRN (08:18)
[2021-08-22] MEDS ORDERED: DEXTROSE 50% 50 ML DISP.SYRIN IV PRN (08:30)
[2021-08-22] MEDS ORDERED: MAGNESIUM OXIDE 400 MG TABLET PO ONE (10:00)
[2021-08-22] MEDS ORDERED: BLOOD SUGAR DIAGNOSTIC 1 EACH STRIP VI SCH (11:30)
[2021-08-22] MEDS: IV D5W 1000ML 1,000 ML IV PRN (16:06)
[2021-08-22] MEDS: RIVAROXABAN 15 MG TABLET PO SCH (18:00)
--- NOTE | 2021-08-22 19:30 | NUR ---
rounds made patient in bed awake ,open eyes spontaneously ,patient moved upper and lower extremities,patient confused .Givens catheter patient with cranberry colored urine not no blood clots secure Givens catheter .v/s wnl . 02 at 0.5 liter /nasal cannula tolerated rr 16-18 saturation 96 %.turned and reposition patient offloaded back with pillow ,bilateral lower extremities elevated with pillows .scds used to bilateral lower ext.
--- NOTE | 2021-08-22 20:00 | NUR ---
due medication given crushed medication given with applesauce . hob up aspiration precaution observed.
--- NOTE | 2021-08-22 20:11 | NUR ---
RESPIRATORY THERAPIST AT B/S AND PLACED PATIENT ON BIPAP 22/5 RESP RATE 20 FIO2 25%.
[2021-08-23] VITALS (22 sets, daily range): BP systolic 102–141; BP diastolic 54–81
[2021-08-23 05:08] LABS: HEMATOCRIT 25.8 % (31.2-41.9); MEAN CORPUSCULAR HEMOGLOBIN 29.6 uug (24.7-32.8); MEAN CORPUSCULAR VOLUME 92.2 fL (75.5-95.3); PLATELET COUNT (AUTO) 266 K/uL (179-408)
[2021-08-23 05:09] LABS: CREATININE 0.8 mg/dL (0.6-1.3); MAGNESIUM 1.9 mg/dL (1.8-2.4); POTASSIUM 4.6 mmol/L (3.5-5.1)
--- NOTE | 2021-08-23 05:30 | NUR ---
ABG DONE ON O2 @ 1/2 L/M NC, REPORTED TO DIVINE SHIPMAN NATIONAL COVERAGE SPECIALIST Addendum: 08/23/21 at 0531 by BRANDIE SHIPMAN RT Amended: Links added.
--- NOTE | 2021-08-23 07:10 | NUR ---
Received pt. in bed resting Hemodynamically stable on controlled A-fib sbp within desired limits. On 0.5L nasal canula with saturation of 88-92%. No tachypnea or sob noted at this time. Givens catheter replaced at this time due to heavy leaking noted. IV line patent with no s/s of complications. No skin breakdown will continue to monitor. Addendum: 08/23/21 at 1848 by CAROLINA GREWAL RN Patient on BUE wrist restrains due to periods of agitation and attempts to remove IV lines and treatment.
[2021-08-23 08:22] LABS: ABG BASE EXCESS 8.5 mmol/L; ABG HCO3 33.2 mmol/L; ABG PCO2 47.7 mmHg (35.0-45.0); ABG PH 7.461 (7.350-7.450); ABG PO2 62.4 mmHg (75.0-100.0); ABG SITE RIGHT FEMORAL; ABG TOTAL HEMOGLOBIN 9.3 G/dL (12.0-16.0); COHb 0.5 % (0.5-1.5); MetHb 0.2 % (0.0-1.5); O2Hb 92.7 % (94.0-97.0); VENT MODE Nasal Cannula
[2021-08-23] MEDS: DOCUSATE SODIUM 100 MG/10 ML LIQUID UDC PO SCH ×2 (08:34→21:45)
[2021-08-23] MEDS: CARVEDILOL 6.25 MG TABLET PO SCH ×2 (08:35→21:45)
[2021-08-23] MEDS: GLUCERNA SHAKE 237 ML CAN PO SCH ×3 (08:35→17:00)
--- NOTE | 2021-08-23 09:40 | NUR ---
Patient unresponsive saturation down to the mid- to lower 70's. in agonal breathing. ABG done and pt. placed on BIPAP 22/5, Rate 20 and FIO2 25%. RT at bedside at this time fernandes replaced as well due to heavy leaking.
[2021-08-23 09:45] LABS: ABG BASE EXCESS 1.3 mmol/L; ABG HCO3 30.7 mmol/L; ABG PCO2 78.4 mmHg (35.0-45.0); ABG PH 7.211 (7.350-7.450); ABG PO2 39.7 mmHg (75.0-100.0); ABG SITE RIGHT RADIAL; ABG TOTAL HEMOGLOBIN 10.8 G/dL (12.0-16.0); COHb 0.5 % (0.5-1.5); MetHb 0.2 % (0.0-1.5); O2Hb 64.4 % (94.0-97.0); VENT MODE Nasal Cannula
[2021-08-23] MEDS: IV D5W 1000ML 1,000 ML IV PRN (10:12)
--- NOTE | 2021-08-23 11:41 | NUR ---
Patient off bipap at this time.
--- NOTE | 2021-08-23 12:00 | NUR ---
Carpenter Dr. Palomares in the unit to see pt.
[2021-08-23 13:12] LABS: ABG BASE EXCESS 5.3 mmol/L; ABG HCO3 33.1 mmol/L; ABG PCO2 69.2 mmHg (35.0-45.0); ABG PH 7.298 (7.350-7.450); ABG PO2 77.8 mmHg (75.0-100.0); ABG SITE RIGHT RADIAL; ABG TOTAL HEMOGLOBIN 9.6 G/dL (12.0-16.0); COHb 0.7 % (0.5-1.5); MetHb 0.2 % (0.0-1.5); O2Hb 93.6 % (94.0-97.0); VENT MODE Nasal Cannula
--- NOTE | 2021-08-23 13:16 | NUR ---
Pulmonary services, Dr. Zheng int he unit to see and examine pt. Oders for ABG received and implemented and orders to place pt. on BIPAP 18/5, Rate of 20, and FIO2 25%. Pt's daughter at bedside and updated b y Dr. Zheng.
[2021-08-23] MEDS ORDERED: PIPERACILLIN SODIUM/TAZOBACTAM 3.375 G in IV DEXTROSE 5% 50 ML IV ONE (14:00)
[2021-08-23] MEDS: RIVAROXABAN 15 MG TABLET PO SCH (17:29)
--- NOTE | 2021-08-23 18:48 | NUR ---
Left pt. in bed awake, restless and agitated, on BUE restrains mittens, due multiple episodes of pt. been able to remove restrains. Patient left on BIPAP 18/5, Rate of 20, and FIO2 25% with saturation of 97-98%. Hemodynamically on controlled A-fib and sbp within desired range. Iv line patent.
--- NOTE | 2021-08-23 19:30 | NUR ---
ROUNDS MADE PATIENT IN BED AWAKE BUT CONFUSED ON BIPAP 18/5 FIO2 25 % BACK UP RATE OF 20, SATURATION 94 TO 96 % .AFIB ON THE HEART MONITOR .
--- NOTE | 2021-08-23 21:30 | NUR ---
LOLA STORY came and visited patient ,went to the room and examined patient .
[2021-08-23] MEDS: PIPERACILLIN SODIUM/TAZOBACTAM 3.375 G in IV DEXTROSE 5% 100 ML IV SCH (21:45)
--- NOTE | 2021-08-23 21:45 | NUR ---
pm care done ,changed soiled linens and gown , skin care done and f/c done .
--- NOTE | 2021-08-23 23:39 | NUR ---
turned and reposition patient
[2021-08-24] VITALS (31 sets, daily range): BP systolic 55–157; BP diastolic 19–97
[2021-08-24] MEDS: Z GUARD REMEDY PASTE 57 GM TUBE TOP PRN (01:04)
[2021-08-24] MEDS: IV D5W 1000ML 1,000 ML IV PRN ×2 (03:19→19:55)
--- NOTE | 2021-08-24 04:50 | NUR ---
am care done changed soiled linens and gone . turned a and reposition patient .
[2021-08-24 05:12] LABS: CREATININE 0.9 mg/dL (0.6-1.3); POTASSIUM 4.6 mmol/L (3.5-5.1)
[2021-08-24 05:20] LABS: MEAN CORPUSCULAR HEMOGLOBIN 29.5 uug (24.7-32.8); MEAN CORPUSCULAR VOLUME 91.6 fL (75.5-95.3); PLATELET COUNT (AUTO) 328 K/uL (179-408)
[2021-08-24] MEDS: PIPERACILLIN SODIUM/TAZOBACTAM 3.375 G in IV DEXTROSE 5% 100 ML IV SCH ×3 (06:42→21:24)
[2021-08-24] MEDS: CARVEDILOL 6.25 MG TABLET PO SCH ×2 (09:00→20:50)
[2021-08-24] MEDS: DOCUSATE SODIUM 100 MG/10 ML LIQUID UDC PO SCH ×2 (09:00→20:50)
[2021-08-24] MEDS: GLUCERNA SHAKE 237 ML CAN PO SCH ×3 (09:00→16:16)
[2021-08-24 10:51] LABS: ABG BASE EXCESS 6.3 mmol/L; ABG HCO3 35.2 mmol/L; ABG PCO2 76.2 mmHg (35.0-45.0); ABG PH 7.282 (7.350-7.450); ABG PO2 41.8 mmHg (75.0-100.0); ABG SITE LEFT RADIAL; ABG TOTAL HEMOGLOBIN 11.5 G/dL (12.0-16.0); MetHb 0.3 % (0.0-1.5); O2Hb 71.7 % (94.0-97.0); VENT MODE Nasal Cannula
--- NOTE | 2021-08-24 10:57 | NUR ---
Dr. Zheng, contacted about pt ABGs, and orders to put pt back on bipap. will continue to monitor.
[2021-08-24] MEDS: PHENYLEPHRINE IV 50 MG in IV NORMAL SALINE 245 ML IV PRN (12:41)
[2021-08-24] MEDS: RIVAROXABAN 15 MG TABLET PO SCH (18:00)
[2021-08-24] MEDS: ACETAMINOPHEN 650 MG SUPP.RECT RC PRN (18:12)
--- NOTE | 2021-08-24 19:30 | NUR ---
patient in bed alert,awake ,confused open eyes spontaneously but doesn't follow commands . patient [email or web address]. received on bipap 18/5 respiratory rate 20 fio2 of 25 % ,saturation 91% rr 20. off neosynephrine drip bp =130/67 HR AFIB =98 will continue to monitor bp . Givens catheter in placed with yellowish urine. kept npo ,for swallow evaluation ? ASPIRATION PNA - on Zosyn . ivf d5 water @ 60 ml/hr via the left piccline . soft wrist restraints to bilateral upper extremities patient keeps removing bipap and monitor .
[2021-08-24 20:14] LABS: *OCCULT BLOOD STOOL POSITIVE (NEGATIVE)
--- NOTE | 2021-08-24 20:30 | NUR ---
respiratory therapist Lore levin b/s examined patient at this time saturation 88 % and patient hyperventilating respiratory therapist increase fio2 to 35 % .this time saturation 95%.will continue to monitor patient.
--- NOTE | 2021-08-24 20:30 | NUR ---
pm care done with spring tacker"s( yanni garcia ) help changed soiled linens and gown ,f/c done . turned and reposition patient . hob up .
--- NOTE | 2021-08-24 21:30 | NUR ---
Pt brought to ER from CCU, due to respiratory distress, possible need for intubation, and CCU being shortstaffed. RT at bedside.
--- NOTE | 2021-08-24 21:48 | NUR ---
moved patient to ER , via bed with reparatory therapist , report given to MISA HICKS for continuity fo care .
[2021-08-24 21:58] LABS: ABG BASE EXCESS 4.7 mmol/L; ABG HCO3 30.7 mmol/L; ABG PCO2 52.3 mmHg (35.0-45.0); ABG PH 7.386 (7.350-7.450); ABG PO2 61.4 mmHg (75.0-100.0); ABG SITE RIGHT RADIAL; ABG TOTAL HEMOGLOBIN 10.6 G/dL (12.0-16.0); COHb 1.1 % (0.5-1.5); CPAP,BG 18 cmH20; O2Hb 91.1 % (94.0-97.0); VENT MODE BIPAP
--- NOTE | 2021-08-24 22:23 | NUR ---
Patient received on contininous Bipap following failed weaning trail during AM shift. Was received on settings:18/5, BUR 20, fiO2 25%. FiO2 was increased to 30% to maintain SpO2 goals 88-92% @ 2029. @2209, patient was transferred to ER. ABG done per MD. No new respiratory orders. Will continue to monitor.
--- NOTE | 2021-08-24 22:26 | NUR ---
Called [facility] to page Dr. Domingo Gil.
--- NOTE | 2021-08-24 22:40 | NUR ---
Dr. Knott speaking with Dr. Domingo Gil.
[2021-08-25] MEDS: ACETAMINOPHEN 650 MG SUPP.RECT RC PRN (00:30)
--- NOTE | 2021-08-25 02:00 | NUR ---
RT at bedside.
[2021-08-25] MEDS: ALBUTEROL SULFATE 1.25 MG/3 ML NEBU NEB PRN (02:22)
[2021-08-25] MEDS: ZIPRASIDONE MESYLATE 20 MG VIAL IM PRN (03:17)
--- NOTE | 2021-08-25 03:17 | NUR ---
Pt agitated and restless, administered Geodon 10mg IM to left thigh.
[2021-08-25] MEDS ORDERED: ZIPRASIDONE MESYLATE 20 MG VIAL IM ONE (03:19)
[2021-08-25] MEDS: BLOOD SUGAR DIAGNOSTIC 1 EACH STRIP VI PRN ×2 (04:15→23:59)
[2021-08-25] MEDS: INSULIN REGULAR, HUMAN 300 UNIT/3 ML VIAL SQ PRN (04:21)
[2021-08-25] MEDS ORDERED: INSULIN REGULAR, HUMAN 300 UNIT/3 ML VIAL ONE (04:25)
[2021-08-25 05:22] LABS: HEMATOCRIT 33.9 % (31.2-41.9); MEAN CORPUSCULAR HEMOGLOBIN 28.9 uug (24.7-32.8); MEAN CORPUSCULAR VOLUME 91.7 fL (75.5-95.3); PLATELET COUNT (AUTO) 357 K/uL (179-408)
[2021-08-25 05:43] LABS: BILIRUBIN,TOTAL 0.8 mg/dL (0.2-1.0); MAGNESIUM 1.7 mg/dL (1.8-2.4); POTASSIUM 4.9 mmol/L (3.5-5.1); TOTAL PROTEIN, SERUM 5.9 g/dL (6.4-8.2)
[2021-08-25] MEDS: PIPERACILLIN SODIUM/TAZOBACTAM 3.375 G in IV DEXTROSE 5% 100 ML IV SCH ×3 (06:02→21:04)
--- NOTE | 2021-08-25 07:00 | NUR ---
Receved pt from Johnathan rn pt drowsy asleepy respiration spont and easy pt on BIPAB IP 18 EP 5 fio2 50% o2 sat 90-92% hob 45@ all time colosly oberve pt picc line on lt upper arm intact and patent genralized edema air flow mattress
[2021-08-25 07:09] LABS: POTASSIUM 4.7 mmol/L (3.5-5.1)
[2021-08-25 07:13] LABS: HEMATOCRIT 33.3 % (31.2-41.9); MEAN CORPUSCULAR HEMOGLOBIN 29.4 uug (24.7-32.8); MEAN CORPUSCULAR VOLUME 92.1 fL (75.5-95.3); PLATELET COUNT (AUTO) 344 K/uL (179-408)
--- NOTE | 2021-08-25 07:20 | NUR ---
Report given to Meagan Rivers RN dayshift.
--- NOTE | 2021-08-25 07:21 | NUR ---
called phu lab bs 319 accuchecked done 152 skin warm and teresa to touch
--- NOTE | 2021-08-25 08:45 | NUR ---
hand of to AGUSTÍN BYNUM
[2021-08-25] MEDS: DOCUSATE SODIUM 100 MG/10 ML LIQUID UDC PO SCH ×2 (09:00→20:04)
[2021-08-25] MEDS: GLUCERNA SHAKE 237 ML CAN PO SCH ×3 (09:00→17:00)
[2021-08-25] MEDS: CARVEDILOL 6.25 MG TABLET PO SCH ×2 (09:00→20:04)
--- NOTE | 2021-08-25 09:28 | NUR ---
Oral meds held due to LOC. Pt responds only to painful stimuli.
--- NOTE | 2021-08-25 09:30 | NUR ---
Dr. Zheng called to inquire about patient. He was notified that patient was in grave condition last night and moved to ER for possible intubation. He stated to continue on Bipap and he will see patient in ER at noon. CXR ordered for today.
[2021-08-25] MEDS ORDERED: MAGNESIUM OXIDE 400 MG TABLET PO ONE (10:00)
--- NOTE | 2021-08-25 11:05 | NUR ---
Pt knocked tube feeding Bipap mask, desaturated to 50's. Reattached tube, SPO2 slowly increasing back to 90's.
--- NOTE | 2021-08-25 12:10 | NUR ---
Per pt's daughter, pt has no pain. But appears anxious, still occassionally, trying to pull at her wires.
--- NOTE | 2021-08-25 13:00 | NUR ---
Oral meds held due to LOC.
[2021-08-25 13:33] LABS: ABG BASE EXCESS 9.4 mmol/L; ABG HCO3 35.7 mmol/L; ABG PCO2 57.4 mmHg (35.0-45.0); ABG PH 7.412 (7.350-7.450); ABG PO2 72.9 mmHg (75.0-100.0); ABG SITE LEFT RADIAL; ABG TOTAL HEMOGLOBIN 11.8 G/dL (12.0-16.0); COHb 0.8 % (0.5-1.5); MetHb 0.3 % (0.0-1.5); O2Hb 93.7 % (94.0-97.0); VENT MODE BIPAP
--- NOTE | 2021-08-25 13:53 | NUR ---
Per ELECTRONIC SCIENCE TEACHER, Darleen, admitting MD aware of ABG results.
[2021-08-25] MEDS ORDERED: PIPERACILLIN/TAZOBACTAM/D5W 50 ML IV ONE (14:29)
--- NOTE | 2021-08-25 17:30 | NUR ---
PT CONTINUES TO BE ON BIPAP 18/5, RATE 20, 30% FIO2. PT HAS BEEN TACHYPNEIC AND TACHYCARDIC THROUGHOUT SHIFT. VOLUMES BETWEEN 200-300, SHALLOW RESPIRATIONS NOTED. SPO2 WNL. MASK ROTATED FROM FULL FACE MASK TO ORAL/NASAL MASK DURING SHIFT. WILL CONTINUE TO MONITOR.
--- NOTE | 2021-08-25 17:49 | NUR ---
SPO2 sensor changed, much better pleth obtained.
[2021-08-25] MEDS: RIVAROXABAN 15 MG TABLET PO SCH (18:00)
--- NOTE | 2021-08-25 18:20 | NUR ---
Oral meds held due to LOC.
--- NOTE | 2021-08-25 19:25 | NUR ---
Pt received on Respironics V-60 on settings of BIPAP 18/5, resp. rate 20, FIO2-25%. No resp. distress noted at this time. Pt to be monitored throughout the shift. Addendum: 08/25/21 at 2224 by CHE REAGAN RT Correction - FIO2 is 30% (not 25%)
--- NOTE | 2021-08-25 19:30 | NUR ---
patient was sent to ccu bed 2 , morning shift gave report to eric , on bipap , , accompaniedby nurse and rt. , awake , fernandes catheter and iv intact
[2021-08-25 19:33] VITALS: BP 110/62
[2021-08-25] MEDS: IV D5W 1000ML 1,000 ML IV PRN (19:38)
[2021-08-25 20:00] VITALS: BP 110/62
[2021-08-25 21:00] VITALS: BP 105/60
[2021-08-25 22:00] VITALS: BP 100/59
[2021-08-25] MEDS: Z GUARD REMEDY PASTE 57 GM TUBE TOP PRN (22:20)
[2021-08-25] MEDS ORDERED: LORAZEPAM 2 MG/1 ML VIAL IV PRN (22:45)
[2021-08-25 23:00] VITALS: BP 97/67
--- NOTE | 2021-08-25 23:50 | NUR ---
Dtr called / update.
[2021-08-26] VITALS (52 sets, daily range): BP systolic 72–145; BP diastolic 46–87
[2021-08-26] MEDS: INSULIN REGULAR, HUMAN 300 UNIT/3 ML VIAL SQ PRN ×3 (00:19→17:18)
[2021-08-26] MEDS: IV NORMAL SALINE 250 ML IV PRN (01:39)
[2021-08-26] MEDS: PIPERACILLIN SODIUM/TAZOBACTAM 3.375 G in IV DEXTROSE 5% 100 ML IV SCH (05:09)
[2021-08-26 05:11] LABS: HEMATOCRIT 30.1 % (31.2-41.9); MEAN CORPUSCULAR HEMOGLOBIN 29.2 uug (24.7-32.8); MEAN CORPUSCULAR VOLUME 91.9 fL (75.5-95.3); PLATELET COUNT (AUTO) 321 K/uL (179-408)
[2021-08-26 05:18] LABS: MAGNESIUM 1.7 mg/dL (1.8-2.4); PHOSPHOROUS 3.7 mg/dL (2.5-4.9)
[2021-08-26 05:22] LABS: CARBON DIOXIDE 33 mmol/L (21-32); CHLORIDE 101 mmol/L (98-107); CREATININE 2.1 mg/dL (0.6-1.3); GLUCOSE 264 mg/dL (74-106); POTASSIUM 5.5 mmol/L (3.5-5.1); UREA NITROGEN, BLOOD 55 mg/dL (7-18)
--- NOTE | 2021-08-26 07:41 | NUR ---
Notified PORSHA Quevedo that patient has critical labs of 5.5 creatinine, and BUN 55, and Potassium level 5.5
[2021-08-26] MEDS ORDERED: DEXTROSE 50% 50 ML DISP.SYRIN IV ONE (08:00)
[2021-08-26] MEDS ORDERED: INSULIN REGULAR, HUMAN 300 UNIT/3 ML VIAL IV ONE (08:00)
--- NOTE | 2021-08-26 08:01 | NUR ---
Received orders for Insulin and D50 to help with Potassium as patient cannot take kayexelate, monitor for H&H drops.
[2021-08-26] MEDS: DOCUSATE SODIUM 100 MG/10 ML LIQUID UDC PO SCH ×2 (08:02→21:00)
[2021-08-26] MEDS: CARVEDILOL 6.25 MG TABLET PO SCH ×2 (08:02→21:00)
[2021-08-26] MEDS: GLUCERNA SHAKE 237 ML CAN PO SCH ×3 (08:03→17:00)
--- NOTE | 2021-08-26 08:07 | NUR ---
Discussed patients Right upper extremity swelling compared to left and positive OB Stool. Added accuchecks and H&H monitoring q8Hr.
[2021-08-26 08:09] LABS: ABG BASE EXCESS 7.5 mmol/L; ABG HCO3 32.8 mmol/L; ABG PCO2 49.9 mmHg (35.0-45.0); ABG PH 7.436 (7.350-7.450); ABG PO2 55.9 mmHg (75.0-100.0); ABG SITE RIGHT RADIAL; ABG TOTAL HEMOGLOBIN 10.9 G/dL (12.0-16.0); COHb 1.1 % (0.5-1.5); O2Hb 89.4 % (94.0-97.0); VENT MODE BIPAP
[2021-08-26] MEDS: PANTOPRAZOLE SODIUM 40 MG VIAL IV SCH ×2 (08:14→21:28)
[2021-08-26] MEDS: BLOOD SUGAR DIAGNOSTIC 1 EACH STRIP VI SCH ×6 (08:17→23:44)
[2021-08-26] MEDS ORDERED: FUROSEMIDE 40 MG/4 ML VIAL IV ONE (08:30)
[2021-08-26] MEDS ORDERED: BISACODYL 10 MG SUPP.RECT RC PRN (09:00)
[2021-08-26] MEDS ORDERED: BISACODYL 10 MG SUPP.RECT RC ONE (09:10)
[2021-08-26] MEDS: MAGNESIUM SULFATE/D5W 100 ML IV SCH ×2 (10:34→11:45)
[2021-08-26] MEDS: PHENYLEPHRINE IV 50 MG in IV NORMAL SALINE 245 ML IV PRN (13:47)
[2021-08-26] MEDS ORDERED: ETOMIDATE 20 MG/10 ML VIAL ONE (14:00)
[2021-08-26] MEDS ORDERED: SUCCINYLCHOLINE CHLORIDE 200 MG/10 ML VIAL ONE (14:00)
--- NOTE | 2021-08-26 14:00 | NUR ---
Dr. Clifford called this singer songwriter to discuss plan of care. Received orders to continue to monitoring Hemoglobin and transfuse one unit of PRBC if <7.
--- NOTE | 2021-08-26 14:00 | NUR ---
After patients daughter discussed intubation with Dr. Norm Huitron, daughter agreed to have mother intubated. Extensive discussion regarding possible outcomes discussed by physicians. Dr. Mclean called from the ER and patient is tube started on neosynephrine to increase BP before intubation. Dr. Mclean ordered 20mg Etomidate, and 150 succynlcholine.
--- NOTE | 2021-08-26 14:25 | NUR ---
PT INTUBATED BY DR. MORROW WITHOUT INCIDENT. COLOR CHANGE ON END-TIDAL, BI-LATERAL BREATH SOUNDS OBSERVED. 7.5 ETT SECURED WITH ANCHOR-FAST APPROX. 22CM AT THE LIP. PT PLACED ON VENT ON SETTINGS GIVEN BY DR. GAITAN. PT IS SEDATED, TOLERATING VENT SETTINGS WELL. SPO2 AND RESPIRATIONS WNL. NO SIGNS OR SYMPTOMS OF RESP. DISTRESS NOTED. SPUTUM SPECIMEN COLLECTED. BVM AT BEDSIDE. VENT PLUGGED INTO RED OUTLET. WILL CONTINUE TO MONITOR.
[2021-08-26] MEDS ORDERED: PROPOFOL 100 ML IV PRN (14:30)
--- NOTE | 2021-08-26 14:30 | NUR ---
BP WNL at this time, Dr. Mclean called to intubate patient, insertion on first attempt, only etomidate needed. CXR ordered, and OG tube inserted as ordered. RT at bedside as well as contract sheltered workshop supervisor.
[2021-08-26] MEDS: PROPOFOL 100 ML IV PRN (14:40)
[2021-08-26] MEDS: CEFEPIME HCL 1 G in IV DEXTROSE 5% 50 ML IV SCH (15:00)
--- NOTE | 2021-08-26 15:15 | NUR ---
Notified Yinka Yusuf that patient has not made any urine since lasix was given as ordered today. Orders received to give 2mg bumex once.
[2021-08-26] MEDS ORDERED: BUMETANIDE 1 MG/4 ML VIAL IV ONE (15:45)
[2021-08-26 16:33] LABS: HEMATOCRIT 26.9 % (31.2-41.9)
[2021-08-26 16:59] LABS: ABG BASE EXCESS 4.7 mmol/L; ABG HCO3 29.1 mmol/L; ABG PCO2 42.5 mmHg (35.0-45.0); ABG PH 7.453 (7.350-7.450); ABG PO2 148.8 mmHg (75.0-100.0); ABG SITE LEFT RADIAL; ABG TOTAL HEMOGLOBIN 10.3 G/dL (12.0-16.0); COHb 0.3 % (0.5-1.5); MetHb 0.4 % (0.0-1.5); O2Hb 98.4 % (94.0-97.0); VENT MODE VENT - A/C; VT, ABG 450 mL
--- NOTE | 2021-08-26 17:00 | NUR ---
CXR and ARTERIAL BLood Gas results reported to Dr. Zheng, and orders received to pull back ETT 1cm and vent changes to respirations 12 breaths and 60% fio2. Informed RT.
[2021-08-26] MEDS: IV D5W 1000ML 1,000 ML IV PRN (17:02)
[2021-08-26] MEDS: RIVAROXABAN 15 MG TABLET PO SCH (17:08)
--- NOTE | 2021-08-26 17:20 | NUR ---
ETT RETRACTED 1 CM PER ORDER. ETT IS CURRENTLY SECURED APPROX. 21 CM AT THE LIP. VENT CHANGES MADE PER ORDER. RATE TO 12, FIO2 TITRATED TO 60%. PT IS TOLERATING VENT SETTINGS WELL. SPO2 AND RESPIRATIONS WNL. NO SIGNS OR SYMPTOMS OF RESP. DISTRESS NOTED. WILL CONTINUE TO MONITOR.
--- NOTE | 2021-08-26 18:51 | NUR ---
Patient is comfortable on Propofol 15mcg/kg/min, Controlled afib on the monitor, ETT 7.5, 21cm at the lipline, a/c 12 TV 450 Peep 5 fio2 60%, Patient is on Neosynephrine 1.5mcg/kg/min, Patient is extremely edematous, Patient has OG tube in place, tube feeding held, Givens catheter in place with NO urine output. Patient had 2 dark black pasty stools after being given dulcolax suppository (GI Consult will follow as needed). Patient on air mattress, bed in low position, side rails up x2.
--- NOTE | 2021-08-26 19:00 | NUR ---
Received patient responsive to stimuli, ET 7.5, 21 cm at lip line, with vent settings of AC 12, TV 450, FiO2 60%, PEEP 5. OG tube in place and clamped. A fib, controlled on the monitor, HR=93, BP=94/57. KM PICC line with ongoing Propofol @ 15mcg/kg/min, Neosynephrine @ 1.4mcg/kg/min, D5W @60mls/hr. Oral care & suctioning done, repositioning every 2 hours. Givens catheter draining well to gravity. Will continue to monitor closely.
--- NOTE | 2021-08-26 19:35 | NUR ---
Pt received on Rodriguez on settings of A/C 12, VT 450, PEEP +5 and FIO2-60%. 7.5 ETT @ approx. 21cm ROSALBA. BVM is at bedside. Pt will be monitored throughout the shift and PRN SX. No resp. distress noted.
[2021-08-26 20:00] LABS: *CREATININE,URINE 80.4 mg/dL (30-125); *URINE TOTAL PROTEIN RANDOM 188.1 mg/dL (<150/24HR)
--- NOTE | 2021-08-26 20:00 | NUR ---
Endorsed patient to MISA García.
[2021-08-26] MEDS: PHENYLEPHRINE IV 100 MG in IV NORMAL SALINE 240 ML IV PRN (21:17)
--- NOTE | 2021-08-26 21:50 | NUR ---
FIO2 to 50%. RN KH aware and notified. No resp. distress noted at this time.
--- NOTE | 2021-08-26 23:00 | NUR ---
FIO2 to 40%. RN KH aware and notified. No resp. distress noted.
--- NOTE | 2021-08-26 23:30 | NUR ---
Bonny called, report given, and requested for BT consent. She adamantly wants to talk with Dr Hardwick regarding her mother's condition and why she needed BT. Will inform AM RN shift regarding this matter.
[2021-08-27] VITALS (92 sets, daily range): BP systolic 52–129; BP diastolic 23–102
[2021-08-27] MEDS: PROPOFOL 100 ML IV PRN ×5 (00:53→23:55)
--- NOTE | 2021-08-27 01:00 | NUR ---
FIO2 to 30%. RN KH aware and notified. No resp. distress noted.
[2021-08-27] MEDS: CEFEPIME HCL 1 G in IV DEXTROSE 5% 50 ML IV SCH (01:16)
[2021-08-27] MEDS: BLOOD SUGAR DIAGNOSTIC 1 EACH STRIP VI SCH ×5 (04:00→20:51)
--- NOTE | 2021-08-27 04:00 | NUR ---
Glucose accucheck 146; patient NPO, held Insulin coverage.
--- NOTE | 2021-08-27 05:00 | NUR ---
Am care done. Linen changed.
[2021-08-27 05:15] LABS: HEMATOCRIT 26.1 % (31.2-41.9); MEAN CORPUSCULAR HEMOGLOBIN 29.4 uug (24.7-32.8); MEAN CORPUSCULAR VOLUME 89.1 fL (75.5-95.3); PLATELET COUNT (AUTO) 286 K/uL (179-408)
[2021-08-27 05:24] LABS: CARBON DIOXIDE 30 mmol/L (21-32); CHLORIDE 98 mmol/L (98-107); CREATININE 2.4 mg/dL (0.6-1.3); GLUCOSE 154 mg/dL (74-106); MAGNESIUM 2.3 mg/dL (1.8-2.4); POTASSIUM 4.6 mmol/L (3.5-5.1); UREA NITROGEN, BLOOD 65 mg/dL (7-18)
[2021-08-27 05:28] LABS: PHOSPHOROUS 2.7 mg/dL (2.5-4.9)
[2021-08-27 05:45] LABS: ABG BASE EXCESS 3.2 mmol/L; ABG HCO3 27.3 mmol/L; ABG PCO2 39.3 mmHg (35.0-45.0); ABG PH 7.459 (7.350-7.450); ABG PO2 85.4 mmHg (75.0-100.0); ABG SITE RIGHT BRACHIAL; ABG TOTAL HEMOGLOBIN 10.3 G/dL (12.0-16.0); COHb 0.3 % (0.5-1.5); MetHb 0.2 % (0.0-1.5); VENT MODE VENT - A/C; VT, ABG 450 mL
[2021-08-27] MEDS: IV D5W 1000ML 1,000 ML IV PRN (06:37)
--- NOTE | 2021-08-27 07:10 | NUR ---
Received pt. on ventilator ETT 7.5 A/C 12, TV 450 FIO2 30%, Peep+5. Saturation within desire limits. On propofol drip running at 15mcg/kg/min. Neuro-gant pt. fully awake, alert and with touch and repositioning pt. attempting to reach ETT. Hemodynamically with SBP been maintained by neosynephrine at 0.8mcg/kg/min. Givens to gravity.
--- NOTE | 2021-08-27 07:21 | NUR ---
Per Dr. Gurrola, ETT pulled back about 3.2 cm is now approx 18cm @ at the lip. Patient continues to be on Rodriguez vent with given settings of AC, RR 12, VT 450, PEEP +5, 30% Fio2. PRN sxn provided with minimal secretions noted. Alarms on and audible. Ambubag at bed side. Ventilator plugged into red outlets. Will continue to monitor throughout shift.
[2021-08-27] MEDS: IV NS 1000 ML 1,000 ML IV PRN (08:36)
[2021-08-27] MEDS: PANTOPRAZOLE SODIUM 40 MG VIAL IV SCH ×2 (08:43→20:52)
[2021-08-27] MEDS: DOCUSATE SODIUM 100 MG/10 ML LIQUID UDC PO SCH ×2 (08:43→20:53)
[2021-08-27] MEDS: CARVEDILOL 6.25 MG TABLET PO SCH ×2 (08:53→21:15)
[2021-08-27] MEDS: GLUCERNA SHAKE 237 ML CAN PO SCH ×2 (08:54→13:00)
[2021-08-27] MEDS: INSULIN REGULAR, HUMAN 300 UNIT/3 ML VIAL SQ PRN ×2 (08:59→20:52)
--- NOTE | 2021-08-27 09:44 | NUR ---
Patient seen by hydrator operator Dr. Hardwick report given, orders received and implemented. See order hx.
[2021-08-27] MEDS ORDERED: GLUCERNA 1.2 1000ML LIQUID GT PRN ×5 (11:00→16:15)
--- NOTE | 2021-08-27 11:00 | NUR ---
Patient seen by attending Elizabeth Quevedo.
[2021-08-27] MEDS: PHENYLEPHRINE IV 100 MG in IV NORMAL SALINE 240 ML IV PRN ×2 (13:04→21:20)
[2021-08-27] MEDS ORDERED: CEFEPIME HCL 2 G in IV DEXTROSE 5% 100 ML IV SCH (14:00)
[2021-08-27] MEDS ORDERED: DEXTROSE 50% 50 ML DISP.SYRIN IV PRN ×2 (17:00→17:15)
[2021-08-27] MEDS ORDERED: BLOOD SUGAR DIAGNOSTIC 1 EACH STRIP VI SCH ×3 (17:00→20:00)
[2021-08-27] MEDS ORDERED: INSULIN REGULAR, HUMAN 300 UNIT/3 ML VIAL SQ PRN ×3 (17:00→17:45)
[2021-08-27] MEDS: RIVAROXABAN 15 MG TABLET PO SCH (17:39)
--- NOTE | 2021-08-27 19:23 | NUR ---
Left pt. on ventilator ETT 7.5 A/C 12, TV 450 FIO2 30%, Peep+5. Saturation within desire limits. On propofol drip running at 25mcg/kg/min. Neuro-gant pt. adequately sedated but easily arousable and withdrawing from pain, and repositioning. Hemodynamically with SBP been maintained by neosynephrine at 2.0mcg/kg/min. Givens to gravity with adequate urine output.
[2021-08-28] VITALS (84 sets, daily range): BP systolic 62–155; BP diastolic 31–102
[2021-08-28] MEDS: IV NS 1000 ML 1,000 ML IV PRN ×2 (00:05→11:09)
[2021-08-28] MEDS: BLOOD SUGAR DIAGNOSTIC 1 EACH STRIP VI SCH ×6 (00:40→20:58)
[2021-08-28] MEDS: INSULIN REGULAR, HUMAN 300 UNIT/3 ML VIAL SQ PRN ×3 (00:42→20:59)
[2021-08-28 05:32] LABS: HEMATOCRIT 26.4 % (31.2-41.9); MEAN CORPUSCULAR HEMOGLOBIN 28.9 uug (24.7-32.8); MEAN CORPUSCULAR VOLUME 87.8 fL (75.5-95.3); PLATELET COUNT (AUTO) 273 K/uL (179-408)
[2021-08-28 05:37] LABS: PHOSPHOROUS 3.3 mg/dL (2.5-4.9)
[2021-08-28 06:22] LABS: ABG HCO3 27.9 mmol/L; ABG PH 7.472 (7.350-7.450); ABG PO2 60.7 mmHg (75.0-100.0); ABG SITE LEFT RADIAL; ABG TOTAL HEMOGLOBIN 10.8 G/dL (12.0-16.0); COHb 0.3 % (0.5-1.5); MetHb 0.4 % (0.0-1.5); O2Hb 90.6 % (94.0-97.0); VENT MODE VENT - A/C; VT, ABG 450 mL
[2021-08-28] MEDS: PHENYLEPHRINE IV 100 MG in IV NORMAL SALINE 240 ML IV PRN ×4 (06:23→22:39)
--- NOTE | 2021-08-28 07:15 | NUR ---
Received pt. on ventilator fully awake attempting to remove ett and removing gown, propofol running at 10mcg/kg/min. At this time for safety reason propofol back to 30mcg/kg/min. oral care provided by RT. Hemodynamically pt. remains on vasopressors maxed out on phenylephrine. sbp in the low 90's. ETT 7.5 18LL on A/C 12. Tv450, 30% FIO2 Peep+5. fernandes to gravity with adequate urine output reported. Feeding on hold as ordered. IV line patent. Will continue to monitor
--- NOTE | 2021-08-28 07:39 | NUR ---
Cardiology services, Dr. Qureshi in the unit to examine pt. report given and ok to start pt. on levophed if needed received.
[2021-08-28] MEDS: PANTOPRAZOLE SODIUM 40 MG VIAL IV SCH ×2 (08:34→20:53)
[2021-08-28] MEDS: DOCUSATE SODIUM 100 MG/10 ML LIQUID UDC PO SCH ×2 (08:34→20:53)
[2021-08-28] MEDS ORDERED: GLUCERNA 1.2 1000ML LIQUID GT PRN (09:31)
--- NOTE | 2021-08-28 09:51 | NUR ---
Patient now on uncontrolled A-fib 100's to 130's 140's sustained for the last 15min. Cephalometric Tracer Dr. Qureshi notified awaiting response.
--- NOTE | 2021-08-28 09:57 | NUR ---
Patient seen by organic gardening teacher Dr. Hardwick report given see order hx,.
[2021-08-28 10:36] LABS: CARBON DIOXIDE 28 mmol/L (21-32); CHLORIDE 100 mmol/L (98-107); CREATININE 2.4 mg/dL (0.6-1.3); GLUCOSE 115 mg/dL (74-106); POTASSIUM 3.8 mmol/L (3.5-5.1); UREA NITROGEN, BLOOD 68 mg/dL (7-18)
[2021-08-28] MEDS: PROPOFOL 100 ML IV PRN ×3 (10:44→21:37)
[2021-08-28] MEDS: MEROPENEM 500 MG in IV NORMAL SALINE 50 ML IV SCH ×2 (10:58→23:37)
--- NOTE | 2021-08-28 11:00 | NUR ---
A call from Dr. Qureshi report with update on pt's uncontrolled A-fib orders to continue monitor with follow up reevaluation by MD on a later basis.
[2021-08-28] MEDS: LINEZOLID 600 MG TABLET PO SCH ×2 (11:03→20:57)
[2021-08-28 11:22] LABS: CARBON DIOXIDE 28 mmol/L (21-32); CHLORIDE 100 mmol/L (98-107); CREATININE 2.3 mg/dL (0.6-1.3); GLUCOSE 185 mg/dL (74-106); POTASSIUM 3.9 mmol/L (3.5-5.1); UREA NITROGEN, BLOOD 71 mg/dL (7-18)
[2021-08-28 11:41] LABS: *BILIRUBIN,URIN NEGATIVE (NEGATIVE); *BLOOD, URINE 1+ (NEGATIVE); *CLARITY,URINE CLEAR (CLEAR); *COLOR,URINE YELLOW (YELLOW); *KETONES,URINE NEGATIVE (NEGATIVE); *UROBILINOGEN,URINE 0.2 E.U./dl (NORMAL); LEUKOCYTE ESTERASE ,URINE NEGATIVE (NEGATIVE); NITRITE, URINE NEGATIVE (NEGATIVE); PH,URINE 5.5 (5.0-8.0); UGLUCOSE NEGATIVE (NEGATIVE)
[2021-08-28] MEDS: RIVAROXABAN 15 MG TABLET PO SCH (17:08)
--- NOTE | 2021-08-28 17:53 | NUR ---
Personnel Associate Dr. Monroy in the unit to follow up on pt. report given see orders hx.
--- NOTE | 2021-08-28 18:08 | NUR ---
Left pt. on ventilator, neuro-gant adequately sedated with propofol running at 30mcg/kg/min. Hemodynamically unstable A-fib uncontrolled with Hr between 110-140's pt. remains on vasopressors maxed out on phenylephrine 3mcg/kg/min with sbp in the upper 90's low 100's. Successfully wean off levophed. No vent changes ETT 7.5 18LL on A/C 12. Tv450, 30% FIO2 Peep+5. pt. tachypneic with rr in the upper 20's mid-30's. fernandes to gravity with urine output totalling 350 for the shift. GI-gant tolerating feeding at goal rate with zero residual, no n/v/d.. IV line patent. Will continue to monitor
--- NOTE | 2021-08-28 20:30 | NUR ---
vented =ETT 7.5/18 LIP LINE AC12/450/30%PEEP 5- VERY MINIMAL/SCANT SMALL SECRETIONS WHITISH TO CHANDRA IN COLOR ORALLY AND VIA ETT. TF=GLUCERNA 40 ML VIA OGT TUBE ,PATIENT TOLERATING TF . AFIB ON THE HEART MONITOR RATE 92 TO 108 F/C WITH YELLOWISH COLORED URINE SEE I AND OS SHEET . LEFT PICC LINE : NEOSYNEPHRINE DRIP AT 3MCG/KG/MIN TO KEEP MAP >65 N/S AT 75 ML/HOUR . PROPOFOL DRIP AT 30 MCG/KG/MIN . LEVOPHED DRIP OFF .
--- NOTE | 2021-08-28 21:30 | NUR ---
daughter called questions answered updated with patient v/s ,vent and medications .
--- NOTE | 2021-08-28 22:00 | NUR ---
turned and reposition patient offloaded back with pillows . hob up . checked tube feeding residual very minimal <10 ml. patient tolerating tube feeding hob up aspiration precaution observed .
--- NOTE | 2021-08-28 22:00 | NUR ---
pm care done ,bath patient changed soiled linens and gowns . f/c done and oral care done . turned and reposition patient .
[2021-08-29] VITALS (89 sets, daily range): BP systolic 33–176; BP diastolic 18–83
--- NOTE | 2021-08-29 | NUR ---
FINGERSTICK DONE AND FOLLOW INSULIN SLIDING SCALE .
[2021-08-29] MEDS: IV NORMAL SALINE 250 ML IV PRN (00:01)
[2021-08-29] MEDS: BLOOD SUGAR DIAGNOSTIC 1 EACH STRIP VI SCH ×7 (00:28→23:08)
[2021-08-29] MEDS: INSULIN REGULAR, HUMAN 300 UNIT/3 ML VIAL SQ PRN ×2 (00:35→04:11)
[2021-08-29] MEDS: PROPOFOL 100 ML IV PRN ×2 (03:37→10:47)
--- NOTE | 2021-08-29 03:38 | NUR ---
Patient endorsed intubated on Rodriguez Vent with ordered settings of AC 12, 450, +5, 30% via 7.5 EtTube ~18cm @ lip. Secured with Anchorfast, EtTube location changed Q2. Suctioned scant amounts of thin white secretions. No complication noted. Alarms are on/ audible. Vent connected to red outlet. Ambubag at bedside. Will continue to monitor throughout shift.
[2021-08-29] MEDS: PHENYLEPHRINE IV 100 MG in IV NORMAL SALINE 240 ML IV PRN ×4 (03:58→21:08)
[2021-08-29 05:27] LABS: HEMATOCRIT 30.9 % (31.2-41.9); MEAN CORPUSCULAR HEMOGLOBIN 28.6 uug (24.7-32.8); MEAN CORPUSCULAR VOLUME 88.4 fL (75.5-95.3); PLATELET COUNT (AUTO) 344 K/uL (179-408)
[2021-08-29 05:37] LABS: CARBON DIOXIDE 27 mmol/L (21-32); CHLORIDE 101 mmol/L (98-107); CREATININE 2.5 mg/dL (0.6-1.3); GLUCOSE 179 mg/dL (74-106); POTASSIUM 3.9 mmol/L (3.5-5.1); UREA NITROGEN, BLOOD 73 mg/dL (7-18)
--- NOTE | 2021-08-29 06:30 | NUR ---
STARTED ON LEVOPHED DRIP LOW BP SBP <76/63 (MAP 63).FOLLOW PROTOCOL . SEE V/S SHEET .
[2021-08-29] MEDS: NOREPINEPHRINE BITARTRATE 32 MG in IV NORMAL SALINE 218 ML IV PRN ×4 (06:54→23:01)
--- NOTE | 2021-08-29 07:00 | NUR ---
Received pt. on ventilator, neuro-gant adequately sedated with propofol running at 30mcg/kg/min. Hemodynamically unstable A-fib uncontrolled with Hr between 110-140's pt. remains on 2 vasopressors maxed out on phenylephrine 3mcg/kg/min with sbp in the upper 90's low 100's. levophed at low dose. No vent changes ETT 7.5 18LL on A/C 12. Tv450, 30% FIO2 Peep+5. no tachypnea or sob with rr in the upper 20's mid. fernandes to gravity. GI-gant tolerating feeding at goal rate with zero residual, no n/v/d.. IV line patent. Will continue to monitor
[2021-08-29 07:47] LABS: ABG BASE EXCESS -1.4 mmol/L; ABG HCO3 24.1 mmol/L; ABG PCO2 43.5 mmHg (35.0-45.0); ABG PH 7.361 (7.350-7.450); ABG SITE LEFT RADIAL; ABG TOTAL HEMOGLOBIN 11.7 G/dL (12.0-16.0); COHb 0.3 % (0.5-1.5); MetHb 0.2 % (0.0-1.5); O2Hb 96.3 % (94.0-97.0); VENT MODE VENT - A/C; VT, ABG 450 mL
[2021-08-29] MEDS: DOCUSATE SODIUM 100 MG/10 ML LIQUID UDC PO SCH ×2 (08:28→21:00)
[2021-08-29] MEDS: PANTOPRAZOLE SODIUM 40 MG VIAL IV SCH ×2 (08:28→21:12)
[2021-08-29] MEDS: LINEZOLID 600 MG TABLET PO SCH ×2 (08:29→21:00)
--- NOTE | 2021-08-29 09:50 | NUR ---
Patient seen by pulmonary services, Dr. Hardwick, report given orders for Chest US mediastinum received. routine orders for am also received.
--- NOTE | 2021-08-29 11:00 | NUR ---
Cardiology services, Dr. Qureshi in the unit to see and examine pt. report given and orders to continue with care plan received.
[2021-08-29] MEDS: MEROPENEM 500 MG in IV NORMAL SALINE 50 ML IV SCH ×2 (11:08→23:01)
--- NOTE | 2021-08-29 11:34 | NUR ---
Patient seen by attending DNP. Jose Ramon Henderson. report given and orders to continue with care plan received and implemented.
[2021-08-29] MEDS ORDERED: ACETAMINOPHEN 650 MG/20.3 ML LIQUID UDC GT PRN (11:45)
[2021-08-29] MEDS ORDERED: CALCIUM CHLORIDE 1 GM/10 ML DISP.SYRIN IVP ONE (13:00)
[2021-08-29] MEDS ORDERED: EPINEPHRINE 1:10,000 1 MG/10 ML DISP.SYRIN ONE (13:00)
[2021-08-29] MEDS ORDERED: SODIUM BICARBONATE 8.4% 50 MEQ/50 ML DISP.SYRIN IV ONE (13:00)
--- NOTE | 2021-08-29 13:00 | NUR ---
At this time pt. noted to become cyanotic, and diaphoretic. Hr of 54 with carotic pulse not present. Patient started on compressions and liliam winston called. 1303 patient received 1 dose of epinephrine with compressions in progress by now liliam winston team at bedside and code run by Dr. Núñez. liliam winston stopped at 1324. During code pt. was maximized levophed drip. and as ordered by ER. physician pt. left on bicarb drip, with Hr in A-fib with runs of non-sustained Vtach.
[2021-08-29 13:28] LABS: ABG BASE EXCESS -3.4 mmol/L; ABG HCO3 25.6 mmol/L; ABG PCO2 69.5 mmHg (35.0-45.0); ABG PH 7.184 (7.350-7.450); ABG PO2 72.2 mmHg (75.0-100.0); ABG SITE RIGHT FEMORAL; ABG TOTAL HEMOGLOBIN 10.1 G/dL (12.0-16.0); COHb 0.3 % (0.5-1.5); O2Hb 88.6 % (94.0-97.0)
[2021-08-29 13:35] LABS: BACTERIA,URINE MODERATE /HPF (NONE SEEN); SQUAMOUS EPITHELIAL CELL,UR FEW /HPF (NONE SEEN); WBC,URINE 0-3 /HPF (0-3)
[2021-08-29] MEDS: SODIUM BICARBONATE 8.4% 50 MEQ in IV NS 1000 ML 1,000 ML IV PRN (13:35)
[2021-08-29 13:36] LABS: CALCIUM OXALATE CRYSTALS,UR FEW /HPF (NONE SEEN); URINE AMORPHOUS URATE FEW /HPF
--- NOTE | 2021-08-29 13:43 | NUR ---
At this time a Call to sheetfed press operator to give him report on pt's current condition and to informed him that pt. is running non-s Vtach. Orders for amiodarone drip received and implemented.
[2021-08-29 13:46] LABS: CARBON DIOXIDE 27 mmol/L (21-32); CHLORIDE 106 mmol/L (98-107); CREATININE 2.8 mg/dL (0.6-1.3); GLUCOSE 230 mg/dL (74-106); POTASSIUM 4.2 mmol/L (3.5-5.1); UREA NITROGEN, BLOOD 78 mg/dL (7-18)
--- NOTE | 2021-08-29 13:59 | NUR ---
ER. Dr. Núñez in the unit and orders for stat EKG received. as stated V-tach is non-sustained. pt. bouncing back between uncontrolled A-fib and non-dolores. Vtach. with pulse present.
[2021-08-29] MEDS ORDERED: AMIODARONE HCL IV 150 MG in IV DEXTROSE 5% 100 ML IV ONE (14:00)
--- NOTE | 2021-08-29 15:00 | NUR ---
Pt's daughter updated by SARI Fontenot over the phone during the code blue and also updated on care plan by Dr. Núñez.
--- NOTE | 2021-08-29 15:00 | NUR ---
EKG results discussed with Dr. Núñez as recommended by Dr. Qureshi and at this time Dr. Núñez concluded that the best line of treatment would to start pt. on amiodarone drip as ordered by knitted cloth examiner.
[2021-08-29] MEDS: AMIODARONE HCL IV 450 MG in IV DEXTROSE 5% 250 ML IV PRN ×2 (15:03→20:25)
[2021-08-29] MEDS: RIVAROXABAN 15 MG TABLET PO SCH (17:45)
--- NOTE | 2021-08-29 18:22 | NUR ---
A call to scooping machine tender Dr. Qureshi and updated him on pt's current condition informed that pt. is maxed out on two vasopressors. Orders to start pt. on Vasopressin received and implemented.
[2021-08-29] MEDS ORDERED: VASOPRESSIN 40 UNIT in IV NORMAL SALINE 40 ML IV PRN (19:00)
--- NOTE | 2021-08-29 19:00 | NUR ---
1900 Received patient nonverbal, unresponsive to painful stimuli, pale in color, cold to touch, nonreactive dilated pupils; S/P code blue; ET 7.5, 18 LL, vent settings: AC 20, TV 450, FiO2 100%, PEEP 5; oral and ET suction done; OG tube and clamped, TF off; A fib, controlled on the monitor with YG=341, BP=97/40; KM PICC line with the following drips: Neosyneprhine 3mcg/kg/min, Vasopressin 0.04 U/mins, Levophed 1mcg/kg/min, Bicarb 70 mls/hr, Amiodarone 1mg/hr; Givens catheter draining well to gravity. Per Nevaeh BYNUM, to keep Amio drip 1 mg/hr until further orders by .
--- NOTE | 2021-08-29 19:10 | NUR ---
Left patient on ventilator ETT 7.5 18LL on A/C 20, tv 450 FIo2 30%, PEEP +5. saturation on the low 80-88%. Hemodynamically unstable and both vasopressors levophed and neosynephrine maxed out, bicarb drip and new orders for vasopressin. On amiodarone drip running as ordered, for uncontrolled A-fib now in the 100-120. OG with feeding on hold pt. on the supine position. Givens to gravity with about 20cc output total for the shift. IV line patent. Care endorse to [facility] elina R.N.
--- NOTE | 2021-08-29 21:00 | NUR ---
Bonny (daughter) called, report given. Daughter still wants her mother to be on full code.
--- NOTE | 2021-08-29 23:00 | NUR ---
Bonny (daughter) called, report given.
[2021-08-29] MEDS: DEXTROSE 50% 50 ML DISP.SYRIN IV PRN (23:09)
[2021-08-30] VITALS (64 sets, daily range): BP systolic 41–128; BP diastolic 16–86
[2021-08-30] MEDS: IV NORMAL SALINE 250 ML IV PRN (03:01)
[2021-08-30] MEDS: PHENYLEPHRINE IV 100 MG in IV NORMAL SALINE 240 ML IV PRN ×3 (03:01→14:20)
[2021-08-30] MEDS ORDERED: VASOPRESSIN 20 UNIT/ML VIAL ONE (03:26)
[2021-08-30] MEDS: DEXTROSE 50% 50 ML DISP.SYRIN IV PRN ×2 (03:44→04:33)
[2021-08-30] MEDS: BLOOD SUGAR DIAGNOSTIC 1 EACH STRIP VI SCH ×4 (03:44→16:00)
--- NOTE | 2021-08-30 04:00 | NUR ---
BS 40. D50 given as ordered.
--- NOTE | 2021-08-30 04:15 | NUR ---
Reassessed BS 66. D50 given as ordered.
[2021-08-30] MEDS: SODIUM BICARBONATE 8.4% 50 MEQ in IV NS 1000 ML 1,000 ML IV PRN (04:22)
[2021-08-30] MEDS: NOREPINEPHRINE BITARTRATE 32 MG in IV NORMAL SALINE 218 ML IV PRN ×3 (04:25→15:25)
--- NOTE | 2021-08-30 05:03 | NUR ---
Reassessed BS 140.
[2021-08-30 06:00] LABS: HEMATOCRIT 32.4 % (31.2-41.9); MEAN CORPUSCULAR HEMOGLOBIN 28.5 uug (24.7-32.8); MEAN CORPUSCULAR VOLUME 97.2 fL (75.5-95.3); PLATELET COUNT (AUTO) 222 K/uL (179-408)
--- NOTE | 2021-08-30 06:00 | NUR ---
Notified Dr. Qureshi regarding patient's HR in the low 60s with order to discontinue the amiodarone drip. Noted and carried out.
[2021-08-30 06:14] LABS: CHLORIDE 102 mmol/L (98-107); CREATININE 3.4 mg/dL (0.6-1.3); GLUCOSE 188 mg/dL (74-106); MAGNESIUM 2.3 mg/dL (1.8-2.4)
[2021-08-30 06:24] LABS: POTASSIUM 6.3 mmol/L (3.5-5.1)
[2021-08-30 06:25] LABS: CARBON DIOXIDE 9 mmol/L (21-32)
[2021-08-30 06:26] LABS: PHOSPHOROUS 10.8 mg/dL (2.5-4.9); UREA NITROGEN, BLOOD 83 mg/dL (7-18)
--- NOTE | 2021-08-30 06:28 | NUR ---
Called [employer] to paged deputy insurance commissioner doctor regarding patient's critical lab results. Awaiting for callback.
--- NOTE | 2021-08-30 06:35 | NUR ---
Seen and examined by Dr. Monroy, report given, critical lab results reported, with new orders. Noted and carried out.
[2021-08-30 06:41] LABS: BAND % (MANUAL) 25 % (0-10); LYMPHOCYTES % (MANUAL) 2 % (20-40); METAMYELOCYTES % 5 % (0-1); MONOCYTES % (MANUAL) 7 % (2-10); MYELOCYTES % 3 % (0-0); NEUTROPHILS % (MANUAL) 58 % (42-75)
[2021-08-30] MEDS ORDERED: SODIUM BICARBONATE 8.4% 50 MEQ/50 ML DISP.SYRIN IV ONE (06:45)
[2021-08-30] MEDS ORDERED: FUROSEMIDE 40 MG/4 ML VIAL IV ONE (06:45)
--- NOTE | 2021-08-30 07:13 | NUR ---
Endorsed patient to MISA Zendejas for continuity of care with the same vent settings and ongoing IV drips. VS: HR=58, BP=81/57, O2 sat 65%, RR=20.
[2021-08-30] MEDS ORDERED: SODIUM POLYSTYRENE SULFONATE 15 G/60 ML LIQUID UDC PO ONE (07:15)
--- NOTE | 2021-08-30 07:42 | NUR ---
PT RECEIVED ON CONT. MECHANICAL VENTILATION. SETTINGS ARE AC 20, VT 450, PEEP +5, 100%. ORALLY INTUBATED WITH 7.5 ETT APPROX. 18CM AT THE LIP. ETT READJUSTED. SUCTION PRN. HME CHANGED. ORAL CARE DONE. BVM AT BEDSIDE. VENT IS PLUGGED INTO RED EMERGENCY OUTLET. ABG TO BE DONE AT 0800.
[2021-08-30] MEDS: DOCUSATE SODIUM 100 MG/10 ML LIQUID UDC PO SCH (08:11)
[2021-08-30] MEDS: PANTOPRAZOLE SODIUM 40 MG VIAL IV SCH (08:15)
[2021-08-30] MEDS: LINEZOLID 600 MG TABLET PO SCH (08:15)
--- NOTE | 2021-08-30 08:15 | NUR ---
omer TOUCH UP EDGER in the unit to see patient. updated that patient is now maxed on 3 pressors, new orders per Dr. kim and Dr. Monroy for critical lab results. instructed to call family to be at bedside due to the poor prognosis of this patient that can code at anytime.
--- NOTE | 2021-08-30 08:18 | NUR ---
S/w Dtr Bonny over the phone. Informed her of patient's condition and status/as requested by hospitalist Jose Ramon. Pt was also seen by ER MD. Per dtr, she will come see patient this AM.
[2021-08-30 08:20] LABS: ABG BASE EXCESS -21.2 mmol/L; ABG HCO3 9.1 mmol/L; ABG PH 6.999 (7.350-7.450); ABG PO2 68.1 mmHg (75.0-100.0); ABG SITE LEFT RADIAL; ABG TOTAL HEMOGLOBIN 10.8 G/dL (12.0-16.0); COHb 0.7 % (0.5-1.5); MetHb 0.3 % (0.0-1.5); O2Hb 85.6 % (94.0-97.0); VENT MODE VENT - A/C; VT, ABG 450 mL
[2021-08-30] MEDS ORDERED: CALCIUM GLUCONATE IV 2 GM in IV NORMAL SALINE 100 ML IV ONE (08:30)
[2021-08-30] MEDS ORDERED: SODIUM BICARBONATE 8.4% 150 MEQ in IV D5W 1000ML 1,000 ML IV PRN (08:30)
--- NOTE | 2021-08-30 09:35 | NUR ---
VENT CHANGES MADE PER ABG RESULTS AND MD ORDER. NEW SETTINGS ARE AC 28, VT 450, PEEP +5, FIO2 100%. WILL CONTINUE TO MONITOR.
--- NOTE | 2021-08-30 10:30 | NUR ---
Doctor Ronen in the unit spoke to daughter regarding prognosis in extent. Daughter agreed to no code and instructed to inform primary regarding her decision.
--- NOTE | 2021-08-30 11:00 | NUR ---
Corie came to talk to daughter who is at bedside and also spoke to her extensively of her prognosis and also agreed to do no further treatment. code status was changed.
[2021-08-30] MEDS: MEROPENEM 500 MG in IV NORMAL SALINE 50 ML IV SCH (13:27)
--- NOTE | 2021-08-30 13:41 | NUR ---
did not cover 1200 blood sugar of 223. patient is npo and has been getting low readings and D50. is on multiple drips.
--- NOTE | 2021-08-30 16:27 | NUR ---
patient has been deteriorating past hour. unable to obtain blood pressures at times and patient's heart rate now in the 40's. pulse check with doppler. daughter at bedside.
--- NOTE | 2021-08-30 16:46 | NUR ---
called [facility] to report patient on ventilator with poor prognosis. patient not a candidate case # [id number]. instructed to call back once patient does not have heart beat.
--- NOTE | 2021-08-30 17:23 | NUR ---
Patient apneic for 5 minutes. Pupils fixed and dilated. No audible heart tones, breath sounds for 1 minute. No palpable pulses for 1 minute. No corneal reflexes. Patient pronounced at 1723. Physicians notified.
--- NOTE | 2021-08-30 17:23 | NUR ---
PT . ETT PULLED OUT AND VENT BROUGHT OUT OF ROOM.
--- NOTE | 2021-08-30 17:45 | NUR ---
Corie Albright NP informed that patient .
--- NOTE | 2021-08-30 19:00 | NUR ---
Patient placed on body bag, tags attached. No belongings at bedside.
--- NOTE | 2021-08-30 19:50 | NUR ---
Called security to brick picker body.
--- NOTE | 2021-08-30 20:30 | NUR ---
Body sent to [facility].
--- NOTE | 2021-08-30 20:35 | NUR ---
Chart given to landscaping supervisor.
[2021-08-31] MEDS ORDERED: MEROPENEM 500 MG in IV NORMAL SALINE 50 ML IV SCH (11:00)
== END 2021-08-30 18:09 | DRG 207 ==
LOC: ER 18:42 → TELE3 22:53 → CCU 08-13 15:44
PROVIDERS: ADMIT Nurse Practitioner Acute Care; ATTEND Nurse Practitioner Acute Care
PROC: 05HB33Z Insertion of Infusion Device into Right Basilic Vein, Percutaneous Approach (ICD-10-PCS; 2021-08-12)
PROC: 5A09357 Assistance with Respiratory Ventilation, Less than 24 Consecutive Hours, Continuous Positive Airway Pressure (ICD-10-PCS; principal; 2021-08-13)
PROC: 05H933Z Insertion of Infusion Device into Right Brachial Vein, Percutaneous Approach (ICD-10-PCS; 2021-08-13)
PROC: 02HV33Z Insertion of Infusion Device into Superior Vena Cava, Percutaneous Approach (ICD-10-PCS; 2021-08-16)
PROC: B548ZZA Ultrasonography of Superior Vena Cava, Guidance (ICD-10-PCS; 2021-08-16)
PROC: 5A09457 Assistance with Respiratory Ventilation, 24-96 Consecutive Hours, Continuous Positive Airway Pressure (ICD-10-PCS; 2021-08-24)
PROC: 5A1955Z Respiratory Ventilation, Greater than 96 Consecutive Hours (ICD-10-PCS; 2021-08-26)
PROC: 0BH17EZ Insertion of Endotracheal Airway into Trachea, Via Natural or Artificial Opening (ICD-10-PCS; 2021-08-26)
PROC: 5A12012 Performance of Cardiac Output, Single, Manual (ICD-10-PCS; 2021-08-29)
DX: J96.21 Acute and chronic respiratory failure with hypoxia (principal); J69.0 Pneumonitis due to inhalation of food and vomit; I50.33 Acute on chronic diastolic (congestive) heart failure; G93.41 Metabolic encephalopathy; R65.21 Severe sepsis with septic shock; A41.9 Sepsis, unspecified organism; N17.0 Acute kidney failure with tubular necrosis; J15.6 Pneumonia due to other Gram-negative bacteria; I48.20 Chronic atrial fibrillation, unspecified; E66.2 Morbid (severe) obesity with alveolar hypoventilation; E87.0 Hyperosmolality and hypernatremia; E87.1 Hypo-osmolality and hyponatremia; E87.2 Acidosis; I13.0 Hypertensive heart and chronic kidney disease with heart failure and stage 1 through stage 4 chronic kidney disease, or unspecified chronic kidney disease; F03.91 Unspecified dementia, unspecified severity, with behavioral disturbance; J96.22 Acute and chronic respiratory failure with hypercapnia; I46.9 Cardiac arrest, cause unspecified; E11.22 Type 2 diabetes mellitus with diabetic chronic kidney disease; E78.5 Hyperlipidemia, unspecified; E87.5 Hyperkalemia; I25.10 Atherosclerotic heart disease of native coronary artery without angina pectoris; I27.20 Pulmonary hypertension, unspecified; I89.0 Lymphedema, not elsewhere classified; R19.5 Other fecal abnormalities; N18.9 Chronic kidney disease, unspecified; F29 Unspecified psychosis not due to a substance or known physiological condition; Z79.01 Long term (current) use of anticoagulants; Z86.73 Personal history of transient ischemic attack (TIA), and cerebral infarction without residual deficits; Z66 Do not resuscitate; F06.30 Mood disorder due to known physiological condition, unspecified; N64.9 Disorder of breast, unspecified; E04.9 Nontoxic goiter, unspecified
CPT/HCPCS: 36415; 36569; 36600; 70030-TC; 70450; 71045; 73650; 76604; 83735; 84100; 84156; 84300; 84478; 85018; 85025; 86140; 87040; 87070; 87086; 87400; 92950; 93005; 93307; 93880; 94002; 94003; 94640; 94660; 97161; A4663; A6209; C9113; G0378; J0171; J0282; J0330; J0610; J0692; J1120; J1160; J1650; J1815; J1940; J1956; J2060; J2185; J2370; J2543; J3475; J3480; J3486; J3490; J3590; J7030; J7042; J7050; J7060; J7070; J7512